=== PATIENT | male | born 1975 | race Two or more races ===

== ENCOUNTER 2023-09-23 06:28 | Observation (INO) ==
--- NOTE | 2023-07-30 16:11 | PAT Medication Instructions ---
Medication Instructions Date of Service July 30, 2023 Home Medications doxepin 50 mg capsule 100 mg PO QPM gabapentin 400 mg capsule 400 mg PO QPM eszopiclone 2 mg tablet 2 mg PO HS atorvastatin 20 mg tablet 20 mg PO HS Check with prescriber doxepin 50 mg capsule 100 mg PO QPM Take evening before surgery gabapentin 400 mg capsule 400 mg PO QPM eszopiclone 2 mg tablet 2 mg PO HS atorvastatin 20 mg tablet 20 mg PO HS Other Notes NOTHING TO EAT OR DRINK AFTER MIDNIGHT. If you have any questions please call us at [phone] or [phone] or [phone] or [phone]
--- NOTE | 2023-08-05 10:41 | Anesthesiology Consultation ---
Date of Service August 05, 2023 Assessment & Plan (1) Encounter for pre-operative examination: - awaiting surgeon ordered medical clearance. Chart Review Chart Review: Pending: Refer to Additional Notes / Consult section and Patient seen in Pre Admission Testing Teaching & Discussion Pre-Anesthesia Teaching/Discussion Notes: Instructed NPO after midnight before surgery, except medications with 15 cc of water. Medication instructions provided according to the PAT guidelines. History Surgery Operation Date: 08/19/23 07:45 Proposed Procedures p C5-C6 Anterior Cervical Discectomy and Fusion, Spinal Cord Monitoring - Kristopher Cortez DO Height/Weight Height: 5 ft 10 in Weight: 89.5 kg Allergies Allergy/AdvReac Type Severity Reaction Status Date / Time No Known Allergies Allergy Verified 07/30/23 15:43 Medications Home Medications Medication Instructions Recorded Confirmed Last Taken doxepin 50 mg capsule 100 mg PO QPM 04/04/20 07/30/23 Unknown gabapentin 400 mg capsule 400 mg PO QPM 04/05/20 07/30/23 Unknown eszopiclone 2 mg tablet 2 mg PO HS 11/17/20 07/30/23 Unknown atorvastatin 20 mg tablet 20 mg PO HS 12/13/22 07/30/23 Unknown choline [id number] 08/05/23 Unknown red beet root 250 mg-sour webber tab PO 08/05/23 Unknown extract 0.5 mg chewable tablet Additional Notes: Pt was advised and it was written on provided medication instructions to stop supplements 2 weeks prior to surgery. He verbalized understanding and agreement, denied questions, concerns or additional supplements. 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 Exercise / Class Metabolic Activity II 4-5 Yardwork/Stairs/Walk up hill (denies chest discomfort or shortness of breath with 1 FOS) Past Family History Family History Mother No problems noted. Father , age 54 of a stroke Stroke Past Surgical History Surgical History History of colonoscopy History of esophagogastroduodenoscopy (EGD) Past Anesthesia History No Hx of Anesthesia Complications and Other (mother with unknown anesthesia reaction) History of PONV No Hx of PONV and No Hx of Motion Sickness STOP BANG Total 1 Social History Smoking Status: Never smoker Do You Dip or Chew Tobacco: No Hx Alcohol Use: Yes alcohol intake frequency: holidays/special occasions only Hx Substance Use: No substance use type: does not use Review of Systems Patient denies chest pain, shortness of breath, dyspnea on exertion, snoring, witnessed apneas, reflux, fever, chills, cough, wheezing, or palpitations. Physical Exam Vital Signs Vitals BP 110/72 P 74 TEMP 98.4 SP02 97% on RA RESP 18 Physical Patient resting comfortably in chair in no acute distress, alert and oriented, responding appropriately throughout visit Full cervical extension range of motion without pain TMD 3.5 finger breadths Mallampati Score 2 Dentition: intact, denies chipped or loose teeth, caps/crowns, implants or bridges Lungs: normal respiratory effort. Good air movement, clear throughout to auscultation, no adventitious breath sounds Cardiac: regular rate and rhythm, no murmurs noted Carotid arteries: negative bruit bilat Lab Results Anesthesia Preop Results Results Anesthesia Widget: WBC 5.44 K/ul (4.8-10.8) 08/05/23 Hgb 14.3 g/dl (14.0-18.0) 08/05/23 Hct 42.7 % (42.0-52.0) 08/05/23 Plt 246 K/uL (130-400) 08/05/23 Na 137 mmol/L (136-145) 08/05/23 K 3.9 mmol/L (3.5-5.1) 08/05/23 Cl 104 mmol/L (98-107) 08/05/23 CO2 29 mmol/L (21-32) 08/05/23 BUN 12 mg/dl (6-23) 08/05/23 Creat 1.03 mg/dl (0.6-1.4) 08/05/23 Glucose Level 116 mg/dl (70-99(Fasting)) H 08/05/23 PT 10.9 Seconds (9.0-12.0) 08/05/23 PTT 26.9 Seconds (21.0-31.0) 08/05/23 INR 1.0 (0.9-1.1) 08/05/23 Urine Color Yellow 08/05/23 Urine Appearance Clear (Clear) 08/05/23 Urine pH 6.0 (4.5-7.5) 08/05/23 Urine Specific [place] 1.015 (1.000-1.030) 08/05/23 Urine Protein Negative (Negative) 08/05/23 Urine Glucose (UA) Negative (Negative) 08/05/23 Urine Ketones Negative (Negative) 08/05/23 Urine Blood Negative (Negative) 08/05/23 Urine Nitrite Negative (Negative) 08/05/23 Urine Bilirubin Negative (Negative) 08/05/23 Urine Urobilinogen Negative (Negative) 08/05/23 Urine Leukocyte Esterase Negative (Negative) 08/05/23 Blood Type B Positive 08/05/23 Antibody Screen NEGATIVE 08/05/23 Testing Electrocardiogram Date: 08/05/23 NSR, rate 71 bpm Minimal voltage criteria for LVH, may be normal variant Chest X-Ray Date: 08/05/23 No acute process
[~2023-09-23 06:28] MED LIST: ACETAMINOPHEN 500 MG TAB PO SCH; CeleBREX 200 MG CAP PO SCH; GABAPENTIN 900 MG DOSE PO SCH; LR 15ML/HR IV SCH; LR 60ML/HR IV SCH; ceFAZolin 2000MG 2,000 MG/15 ML SYR IV SCH
--- OUTSIDE RECORDS SUMMARY | 2023-09-23 06:34 | External Medical Summary | Summary of Care ---
Author Name Unknown Organization [facility] Address [address] [place] [address] Phone [phone] Care Team Providers Care Poker Manager Name Role Phone Ric Garcia MD Primary Care Provider + Reason for Visit * Reason Onset Date Comments Films 06/04/2023 Encounter Details Date Type Department Care Team Description 06/04/2023 Telephone Radiology Film File [address] [place], [place] [id number] Ric Garcia MD [address] [place] [address] Films Allergies No known active allergiesdocumented as of this encounter (statuses as of 06/04/2023) Medications Medication Sig Dispensed Refills Start Date End Date Status Eszopiclone 1 MG Oral Tablet Take 1 Tablet by mouth at bedtime. 0 Active doxepin (SINEQUAN) 75 MG Capsule Take 1 Capsule by mouth at bedtime. 0 Active Atorvastatin Calcium 20 MG Oral Tablet (Lipitor) Take by mouth 1 Tablet in the morning. 90 Tablet 3 07/24/2022 Active Gabapentin 400 MG Oral Capsule (Neurontin) TAKE 1 CAPSULE BY MOUTH AT BEDTIME FOR ANXIETY AND FOR INSOMNIA 0 10/31/2022 Active hydrOXYzine HCl 10 MG Oral Tablet (Atarax) 0 11/06/2022 Active documented as of this encounter (statuses as of 06/04/2023) Active Problems Problem Noted Date H. pylori infection 12/04/2022 Cervical spinal stenosis 07/31/2022 Anosmia 07/04/2022 Overview: 2ary since covid. 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 NO FUTURE labs/IV draws right arm when possible. 2019 polyp colon micky 5y. Routine general medical examination at a health care facility 07/13/2013 Overview: 12/20 +Hpylori 07/19 MRI C-spine stenosis. 07/19 start statin given family hx. 07/10 colonoscopy 8 &2mm polyp--1 tubular adenoma micky 5Y Overweight (BMI 25.0-29.9) 06/17/2013 History of splenomegaly 06/03/2013 Family history of [place] (myocardial infarct ion) 05/18/2013 Depression 05/18/2013 Overview: Sees [facility] Renal stone 05/18/2013 Persistent insomnia 06/06/2009 documented as of this encounter (statuses as of 06/04/2023) Resolved Problems Problem Noted Date Resolved Date Pain of right upper arm 03/19/2019 03/19/20 19 Neck mass 03/31/2013 03/05/2019 Overview: 04/09-referred surg--lipoma on path documented as of this encounter (statuses as of 06/04/2023) Immunizations Name Administration Dates Next Due COVID-19 mRNA, LNP-s, No Pre serve, 2-Dose Series (Synthesio) 03/29/2021,03/07/2021 Seasonal Influenza, Quadriva lent, No Preserve, 6 Mons & Above, IM 07/04/2022,09/13/2020 TDAP (age 10 and older)(Boostrix) 03/10/2019 TDAP (age 11 and older)(Adacel) 06/28/2008 documented as of this encounter Social History Tobacco Use Types Packs/Day Years Used Date Smoking Tobacco: Never Smokeless Tobacco: Never Alcohol Use Standard Drinks/Week Comments No 0 (1 standard drink = 0.6 oz pur e alcohol) Food Insecurity Answer Date Recorded Within the past 12 months, y ou worried that your food would run out before you got money to buy more. Never true 07/04/2022 Within the past 12 months, t he food you bought just didn't last and you didn't have money to get more. Never true 07/04/2022 Sex Assigned at Date Recorded Male 07/04/2022 9:03 AM E DT Job Start Date Occupation Industry Not on file Not on file Not on file documented as of this encounter Miscellaneous Notes * Telephone Encounter - JESSA Humphrey - 06/04/2023 9:29 AM EDT [facility] [place] requesting 07-04-22 xray c spine and 07-28-22 MRI c spine reports only be faxed to their office. [place] Authorization to Release form on file. Report(s) faxed to [phone]. Successful fax confirmation received. documented in this encounter Plan of Treatment Upcoming Encounters Date Type Specialty Care Team Description 06/10/2023 Nutrition Services Nutrition Services Ce Lara RDN [address] [place] [address] 06/24/2023 Office Visit Ophthalmology Cassius Taylor, [address] [place] [address] 10/08/2023 Office Visit Gastroenterology Yeyo Hines MD [address] [place] [address] 12/06/2023 Office Visit Family Medicine Ric Garcia MD [address] [place] [address] Scheduled Procedures Name Priority Associated Diagnoses Date/Ti me COLONOSCOPY FLEXIBLE PROXIMA L DIAGNOSTIC Recall History of colonic polyps Health Maintenance Due Date Last Done Comments Hepatitis B (1 of 3 - 3-dose series) 1975 Pneumococcal Vaccine: Pediatrics (0 to 5 Years) and At-Risk Patients (6 to 64 Years) (1 - PCV) 1981 Hepatitis C Screening 1993 COVID-19 Vaccine (3 - Pfizer series) 05/24/2021 03/29/2021, 03/07/2021 Influenza Vaccine (FLU shot) (#1) 2023 07/04/2022, 09/13/2020 Depression Screening, Annual for Pts 12 and Over 07/04/2023 07/04/2022 COLONOSCOPY-EVERY 5 YRS AGES 18-100 02/06/2024 02/05/2019, 02/05/2019, 07/13/2013, Additional history exists Diabetes Screening 07/04/2025 07/04/2022, 1 12/03/2019, 09/16/2020, Additional history exists Lipid Panel 10/18/2027 10/18/2022, 06/28, 03/04/2019 DTaP,Tdap,and Td Vaccines (3 - Td or Tdap) 03/10/2029 03/10/2019, 06/28/2008 GARDASIL-HPV IMMUNIZATION SERIES Aged Out No longer eligible based on patient's age to complete this topic MENINGOCOCCAL (MENACTRA/MENVEO) Aged Out No longer eligible based on patient's age to complete this topic documented as of this encounter Medical Devices Not on filedocumented as of this encounter Care Teams Poker Manager Relationship Specialty Start Date End Date Ric Garcia MD [address] [place] [address] PCP - General Family Medicine 02/05/19 documented as of this encounter
--- OUTSIDE RECORDS SUMMARY | 2023-09-23 06:34 | External Medical Summary | Summary of Care ---
Author Name Unknown Organization [facility] Address [address] [place] [address] Phone [phone] Care Team Providers Care Supervising Law Enforcement Analyst Name Role Phone Ric Cesar MD Primary Care Provider + Reason for Referral * Evaluate & Treat - Unlimited Visits (Within 30 days (routine)) - Pending Review Specialty Diagnoses / Procedures Referred By Contact Referred To Contact GI NUTRITION/IM / Gastroenterology Diagnoses Abdominal discomfort Yeyo Hines MD [address] [place] [address] Referral ID Status Reason Start Date Expiration Date Visits Requested Visits Authorized [id number] Pending Review Specialty Services Required 04/01/[phone] Question Answer Referral Priority Within 30 days (routine) For what condition is the patient being seen? Other Comments IBS, bloating - please travel counselor on FODMAPs Reason for Visit * Reason Comments Follow Up Abd pain, history of h pylori , gastritis , 3-6 month follow up Encounter Details Date Type Department Care Team Description 04/01/2023 Office Visit Gastroenterology, [facility] [address] [place] [address] Yeyo Hines MD [address] [place] [address] Abdominal discomfort* Allergies No known active allergiesdocumented as of this encounter (statuses as of 04/01/2023) Medications Medication Sig Dispensed Refills Start Date [...] MG Oral Tablet (Atarax) 0 11/06/2022 Active Amoxicillin 500 MG Oral Capsule (Amoxil)Indicati ons:Helicobacter pylori gastritis Take 2 Capsules by mouth in the morning and 2 Capsules before bedtime. For 14 days. 56 Capsule 0 12/20/2022 04/01/2023 Discontinued Clarithromycin 500 MG Oral Tablet (Biaxin)Indicati ons:Helicobacter pylori gastritis Take 1 Tablet by mouth in the morning and 1 Tablet before bedtime. For 14 days. 28 Tablet 0 12/20/2022 04/01/2023 Discontinued Omeprazole 20 MG Oral Capsule Delayed Release (PriLOSEC)Indica tions:Helicobact er pylori gastritis Take 1 Capsule by mouth in the morning and 1 Capsule before bedtime. For 10 days.. 28 Capsule 0 12/20/2022 04/01/2023 Discontinued documented as of this encounter (statuses as of 04/01/2023) Active Problems Problem Noted Date H. pylori [...] History of splenomegaly 06/03/2013 Family history of [place] (myocardial infarct ion) 05/18/2013 Depression 05/18/2013 Overview: Sees [place] Renal stone 05/18/2013 Persistent insomnia 06/06/2009 documented as of this encounter (statuses as of 04/01/2023) Resolved Problems Problem Noted Date Resolved Date Pain of right upper arm 03/19/2019 03/19/20 19 Neck mass 03/31/2013 03/05/2019 Overview: 04/09-referred surg--lipoma on path documented as of this encounter (statuses as of 04/01/2023) Immunizations Name Administration Dates Next Due COVID-19 mRNA, LNP-s, No Pre serve, 2-Dose Series (rumr) 03/29/2021,03/07/2021 Seasonal Influenza, Quadriva lent, No Preserve, 6 Mons & Above, IM 07/04/2022,09/13/2020 TDAP (age 10 and older)(Boostrix) 03/10/2019 TDAP (age 11 and older)(Adacel) 06/28/2008 documented as of this encounter Social History Tobacco Use Types Packs/Day Years Used Date Smoking Tobacco: Never Smokeless Tobacco: Never Tobacco Cessation:Counseling Given: Not Answered Alcohol Use Standard Drinks/Week Comments No 0 [...] on file documented as of this encounter Last Filed Vital Signs Vital Sign Reading Time Taken Comments Blood Pressure 111/72 04/01/2023 11:04 AM EDT Pulse 85 04/01/2023 11:04 AM EDT Temperature 36.6 C (97.9 F) 04/01/2023 11:04 AM E DT Respiratory Rate - - Oxygen Saturation 98% 04/01/2023 11:04 AM EDT Inhaled Oxygen Concentration - - Weight 90.3 kg (199 lb 1.6 oz) 04/01/2023 11:04 AM EDT Height - - Body Mass Index 28.57 11/15/2022 10:29 AM EST documented in this encounter Progress Notes * Yeyo Hines MD - 04/01/2023 11:38 AM EDT Consult requested by Ref: RIC CESAR[[id number]] [address] [facility] [place] [address] (office) [phone] (fax) HPI: 47 year old male seen for chronic abdominal pain. He reports chronic sense of diffuse abd distention, pressure, bloating. Symptoms are constant, unrelated to meals. Symptoms not improved in am, after overnight fast. His symptoms are improved by lying down; his symptoms including dypsnea are worse with sitting. No nausea, no vomiting. Appetite is good, although he has mild early satiety. No unintentional weight loss. He denies GERD symptoms. BM's without sense of incomplete evacuation. He feels as if bloating is causing distention. He has tried minimizing lactose x 2-3 months, without relief. Soda approx once a week. W/u has included - Bentyl trial in 2012 - Omperazolein 2019 - CT's in 2012 and 2018 - Cscopy in 2018 and 2012 - Amylase mildly increased in 2012 and 2021 - fecal elastase and stool for HP neg in 2021 - EGD WNL, bx pos Hp in 2022 - Biaxin triple therapy - GES WNL in 2022 - Breath test for SIBO with lactulose 12/20 - Hydrogen 16 to 34 at 100 mins, to 57 at 120 mins, methane 10 to 13 at 100 mins; no double peak, read as positive. At present, he is unchanged. He describes constant pressure in both sides, bloated. Appetite is good, weight unchanges, ROS: GEN: no weight loss, fever, fatigue HEENT: no changes in vision or hearing, no sinus problems, no sore throat, no hoarsenss RESP: no cough, wheezing, SOB or change in breathing CARDIOVASCULAR: no exertional chest pain, dyspnea, palpitations GI: see HPI , otherwise negative : no dysuria, hematuria, polyuria MUSCULOSKELETAL: no change in joint pains, no new arthritis PSYCHIATRIC: no significant anxiety or depression, unchanged sleep pattern HEME: no bleeding tendency, no transfusion history NEURO: no significant headache, no seizures , no tremors SKIN: no new rashes, no itching ALLERGIES: Review of patient's allergies indicates: No Known Allergies Past Medical History: Diagnosis Date Depression 05/18/2013 Seekelsey Cruz H. 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 NO FUTURE labs/IV draws right arm when possible. Renal stone 05/18/2013 Past Surgical History: Procedure Laterality Date COLONOSCOPY, DIAGNOSTIC (RECTUM) 07/13/2013 COLONOSCOPY FLEXIBLE PROXIMAL DIAGNOSTIC performed by Memo Monique MD at ENDOSCOPY [facility] COLONOSCOPY, DIAGNOSTIC (RECTUM) 02/05/2019 diverticulosis sigmoid colon/internal hemorrhoids/biopsies show adenomatous polyps/recall 5 years/COLONOSCOPY FLEXIBLE PROXIMAL DIAGNOSTIC performed by Memo Monique MD at ENDOSCOPY [facility] EGD, FLEXIBLE, DIAGNOSTIC 11/21/2022 biopsies show inflammation, H pylori/ESOPHAGOGASTRODUODENOSCOPY (EGD), FLEXIBLE, TRANSORAL, DIAGNOSTIC performed by Berto Watkins MD at ENDOSCOPY [facility] INJECT DX/THER SUBSTANCE INTERLAMINAR CERVICAL/THORACIC W IMAGE GUIDE 10/03/2022 INJECTION SPINE LUMBAR CERVICAL OR THORACIC performed by Omer Deras DO at OR [facility] MISCELLANEOUS ORDER ([facility] ONLY) Right 2006 right axilla right lymph node biopsy in [place]. RECONSTRUCT LIP W/LOCAL FLAP Family History Problem Relation Age of Onset Diabetes Mother Heart Disorder Father 54 of [place] +smoked. 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 Tobacco Use Smoking status: Never Smokeless tobacco: Never Vaping Use Vaping Use: Never used Substance and Sexual Activity Alcohol use: No Drug use: No Sexual activity: Yes Other Topics Concern Blood Transfusions No Social History Narrative No pets No mold Gas heat Central air conditioning Social Determinants of Health Food Insecurity: No Food Insecurity Worried About Running Out of Food in the Last Year: Never true Ran Out of Food in the Last Year: Never true BP 111/72 | Pulse 85 | Temp 36.6 C (97.9 F) | Wt 90.3 kg (199 lb 1.6 oz) | SpO2 98% | BMI 28.57kg/m | BSA 2.11 m GENERAL: obese in no acute distress SKIN: no rashes, ulcers, or spider angiomata HEENT: normocephalic, sclerae clear, pharynx normal NECK: supple, no masses or thyroid enlargement LUNGS: clear to auscultation and percussion HEART: regular rate & rhythm, no murmurs and no gallops ABDOMEN: Mild diastasis, non-tender without guarding or rebound, soft, normo- active bowel sounds, no masses, no hepatosplenomegaly, no rebound or guarding, no bruits EXTREMITIES: no palmar erythema, no edema, no skin discoloration, no clubbing, no cyanosis NEURO: no lateralizing findings, Sensory/Motor grossly normal Labs reviewed LFTs 07/19 WNL Amyase 133 CBC WNL TTG WNL Giardia nega B12 WNL I personally reviewed CT -- pancreas WNL, no evidence dastric/intestinal distention, mild diastasis, no hernia ASSESSMENT/PLAN: Bloating - DDX = functional, obesity related, aerophagia - Doubt related to Hp or SIBO - breath test did not show increase to 20 by 100 mins and no double peak, and pt did not have response to abx. - Pt wishes to try FODMAPS diet, will refer to dietitian. I offered trial of TCA at low dose, but he is concenerned abt sedation, and does not wish to try. Yeyo Hines MD documented in this encounter Nursing Notes * Vero Reyes LPN - 04/01/2023 11:06 AM EDT Patient identified by name and date of . Chief Complaint Patient presents with Follow Up Abd pain, history of h pylori , gastritis , 3-6 month follow up Pt finished treatment for h pylori approx 6 weeks ago ( per pt). Pt still has abd pain jose lower quadrants, constantly. documented in this encounter Plan of Treatment Upcoming Encounters Date Type Specialty Care Team Description 06/04/2023 Nutrition Services Gastroenterology Liz Flower RDN [address] [place] [id number] 10/08/2023 Office Visit Gastroenterology Yeyo Hines MD [address] [place] [address] 12/06/2023 Office Visit Family Medicine Ric Cesar MD [address] [place] [address] Scheduled Procedures Name Priority Associated Diagnoses Date/Ti me COLONOSCOPY FLEXIBLE PROXIMA L DIAGNOSTIC Recall History of colonic polyps Scheduled Referrals Name Type Priority Associated Diagnoses Orde r Schedule GI NUTRITION REFERRAL OP Referral Within 30 days (routine) Abdominal discomfort Ordered: 04/01/2023 Health Maintenance Due Date Last Done Comments Hepatitis B (1 of 3 - 3-dose series) 1975 Pneumococcal Vaccine: Pediatrics (0 to 5 Years) and At-Risk Patients (6 to 64 Years) (1 - PCV) 1981 Hepatitis C Screening 1993 COVID-19 Vaccine (3 - Booster for Pfizer series) 05/24/2021 03/29/2021, 03/07/2021 Depression Screening, Annual for Pts 12 and Over 07/04/2023 07/04/2022 COLONOSCOPY-EVERY 5 YRS AGES 18-100 02/06/2024 02/05/2019, 02/05/2019, 07/13/2013, Additional history exists Diabetes Screening 07/04/2025 07/04/2022, 1 12/03/2019, 09/16/2020, Additional history exists Lipid Panel 10/18/2027 10/18/2022, 06/28, 03/04/2019 DTaP,Tdap,and Td Vaccines (3 - Td or Tdap) 03/10/2029 03/10/2019, 06/28/2008 Influenza Vaccine (FLU shot) Completed 07/04/2022, 09/13/2020 GARDASIL-HPV IMMUNIZATION SERIES Aged Out No longer eligible based on patient's age to complete this topic MENINGOCOCCAL (MENACTRA/MENVEO) Aged Out No longer eligible based on patient's age to complete this topic documented as of this encounter Medical Devices Not on filedocumented as of this encounter Visit Diagnoses Diagnosis Abdominal discomfort- Primary Abdominal pain, unspecified site documented in this encounter Care Teams Supervising Law Enforcement Analyst Relationship Specialty Start Date End Date Ric Cesar MD [address] [place] [address] PCP - General Family Medicine 02/05/19 documented as of this encounter"
--- OUTSIDE RECORDS SUMMARY | 2023-09-23 06:34 | External Medical Summary | Summary of Care ---
Author Name Unknown Organization [facility] Address [address] [place] [address] Phone [phone] Care Team Providers Care Chicken Handler Name Role Phone Ric Garcia MD Primary Care Provider + Reason for Visit * Reason Comments Follow Up 2-3 week return. Pt states "It didn't make a difference when using warm compresses" Encounter Details Date Type Department Care Team Description 07/15/2023 Office Visit Ophthalmology, [facility] [address] [place] [address] Cassius Taylor T, DO [address] [place] [address] Chalazion of left lower eyelid* Allergies No known active allergiesdocumented as of this encounter (statuses as of 07/15/2023) Medications Medication Sig Dispensed Refills Start Date [...] MG Oral Tablet (Atarax) 0 11/06/2022 Active Hospital, Clinic, or Other Facility Administered Medication Ordered Dose Route Frequency Start Date End Date Status Triamcinolone Acetonide (Kenalog) 10 MG/ML inj 5 mgIndications:Chalazion of left lower eyelid 5 mg LS ONCE 07/15/2023 07/15/2023 Active documented as of this encounter (statuses as of 07/15/2023) Active Problems Problem Noted Date H. pylori [...] History of splenomegaly 06/03/2013 Family history of [place] (myocardial infarct ion) 05/18/2013 Depression 05/18/2013 Overview: Sees [facility] Renal stone 05/18/2013 Persistent insomnia 06/06/2009 documented as of this encounter (statuses as of 07/15/2023) Resolved Problems Problem Noted Date Resolved Date Pain of right upper arm 03/19/2019 03/19/20 19 Neck mass 03/31/2013 03/05/2019 Overview: 04/09-referred surg--lipoma on path documented as of this encounter (statuses as of 07/15/2023) Immunizations Name Administration Dates Next Due COVID-19 mRNA, LNP-s, No Pre serve, 2-Dose Series ([employer]) 03/29/2021,03/07/2021 Seasonal Influenza, PF, 6 mo ns & Above, IM , (Flulaval) 07/04/2022,09/13/2020 TDAP (age 10 and older)(Boostrix) 03/10/2019 [...] at Date Recorded Male 07/04/2022 9:03 AM EDT Job Start Date Occupation Industry Not on file Not on file Not on file documented as of this encounter Progress Notes * Cassius Taylor, - 07/15/2023 10:41 AM EDT Nitin Gomez is a 48 year old male who returns for left eye lower eyelid lesion. Pt reports present for some time with reported growth. Hygiene and compresses used with no effect Ophthalmology Past History: contact lenses Ophthalmology Family History: none Ophthalmology ROS: Positive for bump lll and no recent significant change in vision,no eye pain, redness, discharge,no diplopia Current Ophthalmic Medications: None EXAM: Base Eye Exam Visual Acuity (Snellen - Linear) Right Left Dist sc 20/40 20/25 Neuro/Psych Oriented x3: Yes Slit Lamp and Fundus Exam Slit Lamp Exam Right Left Lids/Lashes Normal central lower eyelid 1cm lesion suggested resolving chalazion with MGD plugging Conjunctiva/Sclera White and quiet White and quiet Cornea CL in use CL in use Anterior Chamber Deep and quiet Deep and quiet Iris Round and reactive Round and reactive Lens NS NS IMPRESSION: 1. Suspected Chalazion lll with MGD plugs PLAN: 1. R/B/A discussed including but not limited to pain, bleeding, scarring, infection, Loss of vision, loss of eye, need for further surgery, eye drops in the post operative period, the use of regionalor general anesthesia. 2. Name: Nitin Gomez Date: 07/15/2023 Outpatient Procedure Note: Pre op Diagnosis: chalazion left eye lower lid Post op Diagnosis: same Procedure: Injection of Chalazion left eye lower lid Surgeon: Cassius Taylor DO Anesthesia: alcaine Complications: none EBL: none Procedure: After obtaining informed consent from the patient and parent, the left eye was anesthetised with2 gtts of Alciane. alcohol used for antiseptic and 0.5mL of Kenalog 10 placed subcutaneouslyin area of chalazion. Erythromycin ointment was applied. Recommend F/U 4 weeks PRN. Blood loss none. No complications. DO Cassius Trejo DO documented in this encounter Nursing Notes * ALIRIO Louie - 07/15/2023 10:38 AM EDT Nitin Gomez is a 48 year old male who presents for 2-3 week Return. Last Visit: 06/24/2023 (in office), Visit date not found (telemedicine) He currently states "It didn't make a difference when using warm compresses" Are you diabetic? No Current Ophthalmic Medications: None documented in this encounter Plan of Treatment Upcoming Encounters Date Type Specialty Care Team Description 07/26/2023 Nutrition Services Nutrition Services Ce Lara, KONRAD [address] [place] [address] 08/07/2023 Office Visit Family Medicine Eros Moraes MD [address] [place] [address] 08/12/2023 Office Visit Ophthalmology Cassius Taylor DO 16 [place] [address] 10/08/2023 Office Visit Gastroenterology Yeyo Hines MD [address] [place] [address] 12/06/2023 Office Visit Family Medicine Ric Garcia MD [address] [place] [address] Scheduled Procedures Name Priority Associated Diagnoses Date/Ti me COLONOSCOPY FLEXIBLE PROXIMA L DIAGNOSTIC Recall History of colonic polyps Health Maintenance Due Date Last Done Comments Hepatitis B (1 of 3 - 3-dose series) 1975 Hepatitis C Screening 1993 COVID-19 Vaccine (3 - Pfizer series) 05/24/2021 03/29/2021, 03/07/2021 Influenza Vaccine (FLU shot) (#1) 2023 07/04/2022, 09/13/2020 Depression Screening 07/04/2023 07/04/2022 COLONOSCOPY-EVERY 5 YRS AGES 18-100 [...] on patient's age to complete this topic Pneumococcal Vaccine: Pediatrics (0 to 5 Years) and At-Risk Patients (6 to 64 Years) Aged Out No longer eligible based on patient's age to complete this topic documented as of this encounter Medical Devices Not on filedocumented as of this encounter Visit Diagnoses Diagnosis Chalazion of left lower eyelid- Primary Chalazion documented in this encounter Care Teams Chicken Handler Relationship Specialty Start Date End Date Ric Garcia MD [address] [place] [address] PCP - General Family Medicine 02/05/19 documented as of this encounter
--- OUTSIDE RECORDS SUMMARY | 2023-09-23 06:34 | External Medical Summary | Summary of Care ---
Author Name Unknown Organization [facility] Address [address] [place] [address] Phone [phone] Care Team Providers Care Quality Analyst/Technical Writer Name Role Phone Ric Garcia MD Primary Care Provider + Encounter Details Date Type Department Care Team Description 08/05/2023 Result Scan Unspecified Department <No scans attached> Allergies No known active allergiesdocumented as of this encounter (statuses as of 08/06/2023) Medications Medication Sig Dispensed Refills Start Date End Date Status Eszopiclone 1 MG Oral Tablet Take 1 Tablet by mouth at bedtime. 0 Active doxepin (SINEQUAN) 75 MG Capsule Take 1 Capsule by mouth at bedtime. 0 Active Gabapentin 400 MG Oral Capsule (Neurontin) TAKE 1 CAPSULE BY MOUTH AT BEDTIME FOR ANXIETY AND FOR INSOMNIA 0 10/31/2022 Active hydrOXYzine HCl 10 MG Oral Tablet (Atarax) 0 11/06/2022 Active Atorvastatin Calcium 20 MG Oral Tablet (Lipitor) TAKE 1 TABLET BY MOUTH IN THE MORNING 90 Tablet 1 07/17/2023 Active documented as of this encounter (statuses as of 08/06/2023) Active Problems Problem Noted Date Cervical spinal stenosis 07/31/2022 Anosmia 07/04/2022 Overview: [...] adenoma micky 5Y Overweight (BMI 25.0-29.9) 06/17/2013 Depression with anxiety 05/18/2013 Overview: Sees [facility] Persistent insomnia 06/06/2009 documented as of this encounter (statuses as of 08/06/2023) Resolved Problems Problem Noted Date Resolved Date H. pylori infection 12/04/2022 08/06/2023 Pain of right upper arm 03/19/2019 03/19/20 19 History of splenomegaly 06/03/2013 08/06/20 Family history of [place] (myocardial infarction) 08/06/2023 Renal stone 05/18/2013 08/06/2023 Neck mass 03/31/2013 03/05/2019 Overview: 04/09-referred surg--lipoma on path documented as of this encounter (statuses as of 08/06/2023) Immunizations Name Administration Dates Next Due COVID-19 mRNA, LNP-s, No Pre serve, 2-Dose Series ([employer]) 03/29/2021,03/07/2021 SEASONAL INFLUENZA, PF, 6 M & Above, IM , (FLULAVAL or FLUZONE) 07/04/2022,09/13/2020 TDAP (age 10 and older)(Boostrix) 03/10/2019 [...] on file documented as of this encounter Plan of Treatment Upcoming Encounters Date Type Specialty Care Team Description 08/07/2023 Office Visit Family Medicine [facility] Moraes [facility] [address] [facility] [place] [address] 08/12/2023 Office Visit Ophthalmology Cassius Taylor, DO [address] [place] [address] 09/25/2023 Nutrition Services Nutrition Services Ce Lara RDN 132 [facility] [place] [address] 10/08/2023 Office Visit Gastroenterology Yeyo Hines MD [address] [facility] [place] [address] 12/06/2023 Office Visit Family Medicine Ric Garcia MD 132 [facility] [place] [address] Scheduled Procedures Name Priority Associated Diagnoses Date/Ti me COLONOSCOPY FLEXIBLE PROXIMA L DIAGNOSTIC Recall History of colonic polyps Health Maintenance Due Date Last Done Comments Hepatitis B (1 of 3 - 3-dose series) 1975 Hepatitis C Screening 1993 COVID-19 Vaccine ( season) 2023 03/29/2021, 03/07/2021 Influenza Vaccine (FLU shot) (#1) 2023 07/04/2022, 09/13/2020 Depression Screening 07/04/2023 07/04/2022 COLONOSCOPY-EVERY 5 YRS AGES 18-100 02/06/2024 02/05/2019, 02/05/2019, 07/13/2013, Additional history exists Diabetes Screening 07/04/2025 08/05/2023, 0 07/04/2022, 10/02/2020, Additional history exists Lipid Panel 10/18/2027 10/18/2022, [...] Not on filedocumented as of this encounter Procedures Procedure Name Priority Date/Time Associated Diagnosis Comments OUTSIDE LAB RESULTS 08/05/2023 OUTSIDE LAB RESULTS 08/05/2023 EKG SCANNED RESULT 08/05/2023 documented in this encounter Results * OUTSIDE LAB RESULTS (08/05/2023) 08/05/2023 No Physician Data Unknown LABORATORY * OUTSIDE LAB RESULTS (08/05/2023) 08/05/2023 No Physician Data Unknown LABORATORY * EKG SCANNED RESULT (08/05/2023) 08/05/2023 No Physician Data Unknown EKG documented in this encounter Care Teams Quality Analyst/Technical Writer Relationship Specialty Start Date End Date Ric Garcia MD [address] [place] [address] PCP - General Family Medicine 02/05/19 documented as of this encounter
--- OUTSIDE RECORDS SUMMARY | 2023-09-23 06:34 | External Medical Summary | Summary of Care ---
Author Name Unknown Organization [facility] Address [address] [place] [address] Phone [phone] Care Team Providers Care Financial Planner Name Role Phone Ric Garcia MD Primary Care Provider + Reason for Visit * Reason Comments Follow Up 4 week f/u Encounter Details Date Type Department Care Team Description 08/12/2023 Office Visit Ophthalmology, [facility] [address] [place] [address] Cassius Taylor, DO [address] [place] [address] Chalazion of left lower eyelid* Allergies No known active allergiesdocumented as of this encounter (statuses as of 08/12/2023) Medications Medication Sig Dispensed Refills Start Date [...] as of this encounter (statuses as of 08/12/2023) Active Problems Problem Noted Date Cervical spinal stenosis 07/31/2022 Anosmia 07/04/2022 Overview: 2ary since covid. Other specified noninfective disorders of lymphatic vessels [...] 06/17/2013 Depression with anxiety 05/18/2013 Overview: Sees [facility] Persistent insomnia 06/06/2009 documented as of this encounter (statuses as of 08/12/2023) Resolved Problems Problem Noted Date Resolved Date H. pylori infection 12/04/2022 08/06/2023 History of 2019 novel coronavirus disease (COVID -19) 02/03/2021 08/07/2023 Pain of right upper arm 03/19/2019 03/19/20 19 History of splenomegaly 06/03/2013 08/06/20 23 Family history of [place] (myocardial infarction) 08/06/2023 Renal stone 05/18/2013 08/06/2023 Neck mass 03/31/2013 03/05/2019 Overview: 04/09-referred surg--lipoma on path documented as of this encounter (statuses as of 08/12/2023) Immunizations Name Administration Dates Next Due COVID-19 mRNA, LNP-s, No Pre serve, 2-Dose Series (Pfizer) 03/29/2021,03/07/2021 SEASONAL INFLUENZA, PF, 6 M & Above, IM , (FLULAVAL or FLUZONE) 08/07/2023,07/04/2022,09/13/2020 TDAP (age 10 and older)(Boostrix) 03/10/2019 TDAP [...] of this encounter Progress Notes * Cassius Taylor DO - 08/12/2023 11:13 AM EDT Nitin Gomez seen for 2 weeks post chalazion I/D LLL. Tolerated well improved but small lump persists. LLL: incisions intact small scar area C/S: Normal Cornea: Clear Assessment: 2 weeks S/P I/D LLL . Looks great. Plan: Reassurance Hygiene daily 4 week return consider kenalog Pt. advised to RTC sooner if there are any problems. Cassius Taylor DO documented in this encounter Nursing Notes * Winsome Blake RN - 08/12/2023 11:09 AM EDT Nitin Gomez is a 48 year old male who presents for 4 week f/u. Last Visit: 07/15/2023 (in office), Visit date not found (telemedicine) He currently states no issues or concerns with eyes. Are you diabetic? No Current Ophthalmic Medications: None [facility], IOP, current eyeglass Rx, and pupil check and dilation if needed can be found in ophth exam. documented in this encounter Plan of Treatment Upcoming Encounters Date Type Specialty Care Team Description 09/09/2023 Office Visit Ophthalmology Cassius Taylor DO [address] [place] [address] 09/25/2023 Nutrition Services Nutrition Services Ce Lara, RDN [address] [place] [address] 10/08/2023 Office Visit Gastroenterology Yeyo Hines MD [address] [place] [address] 12/06/2023 Office Visit Family Medicine Ric Garcia MD [address] [place] [address] Scheduled Procedures Name Priority Associated Diagnoses Date/Ti me COLONOSCOPY FLEXIBLE PROXIMA L DIAGNOSTIC Recall History of colonic polyps Health Maintenance Due Date Last Done Comments Hepatitis B (1 of 3 - 3-dose series) 1975 Hepatitis C Screening 1993 COVID-19 Vaccine (2022- season) 2023 03/29/2021, 03/07/2021 Depression Screening 07/04/2023 07/04/2022 COLONOSCOPY-EVERY 5 YRS AGES 18-100 02/06/2024 02/05/2019, 02/05/2019, 07/13/2013, Additional history exists Diabetes Screening 08/05/2026 08/05/2023, 0 07/04/2022, 10/02/2020, Additional history exists Lipid Panel 10/18/2027 10/18/2022, 06/28, 03/04/2019 DTaP,Tdap,and Td Vaccines (3 - Td or Tdap) 03/10/2029 03/10/2019, 06/28/2008 Influenza Vaccine (FLU shot) Completed 08/2023, 07/04/2022, 09/13/2020 GARDASIL-HPV IMMUNIZATION SERIES Aged Out [...] Chalazion documented in this encounter Care Teams Financial Planner Relationship Specialty Start Date End Date Ric Garcia MD [address] [place] [address] PCP - General Family Medicine 02/05/19 documented as of this encounter
--- OUTSIDE RECORDS SUMMARY | 2023-09-23 06:34 | External Medical Summary | Summary of Care ---
Author Name Unknown Organization [facility] Address [address] [place] [address] Phone [phone] Care Team Providers Care Water Tender Name Role Phone Ric Garcia MD Primary Care Provider + Reason for Referral * Precert (Within 10 days (routine)) - Pending Review Specialty Diagnoses / Procedures Referred By Zinaac t Referred To Contact Radiology Diagnoses Spinal stenosis of cervical region with radiculopathy Procedures MRI C SPINE WO CONTRAST Kristopher Cortez DO [address] [place] [address] Referral ID Status Reason Start Date Expiration Date V isits Requested Visits Authorized [id number] Pending Review 06/04/[phone] Encounter Details Date Type Department Care Team Description 06/04/2023 Orders Only Access [facility], [place] [address] [place] [address] Ext *DO NOT REMOVE THIS DEPARTMENT* [place] [id number] Requisition, External Radiology [address] [place] [address] Spinal stenosis of cervical region with radiculopathy* Allergies No known active allergiesdocumented as of [...] History of splenomegaly 06/03/2013 Family history of [place] (myocardial infarct ion) 05/18/2013 Depression 05/18/2013 Overview: Sees [facility] Renal stone 05/18/2013 Persistent insomnia 06/06/2009 documented as of this encounter (statuses as of 06/04/2023) Resolved Problems Problem Noted Date Resolved Date Pain of right upper arm 03/19/2019 03/19/20 19 Neck mass 03/31/2013 03/05/2019 Overview: 04/09-referred surg--lipoma on path documented as of this encounter (statuses as of 06/04/2023) Immunizations Name Administration Dates Next Due COVID-19 mRNA, LNP-s, No Pre serve, 2-Dose Series ([employer]) 03/29/2021,03/07/2021 Seasonal Influenza, Quadriva lent, No Preserve, [...] Encounters Date Type Specialty Care Team Description 06/07/2023 Imaging Radiology 06/10/2023 Nutrition Services Nutrition Services Ce Lara RDN [address] [place] [address] 06/24/2023 Office Visit Ophthalmology Cassius Taylor, [address] [place] [address] 10/08/2023 Office Visit Gastroenterology Yeyo Hines MD [address] [place] [address] 12/06/2023 Office Visit Family Medicine iRc Garcia MD [address] [place] [address] Scheduled Orders Name Type Priority Associated Diagnoses Orde r Schedule MRI C SPINE WO CONTRAST Medical Imaging Routine Spinal stenosis of cervical region with radiculopathy Expected: 06/04/2023, Expires: 07/05/2024 Scheduled Procedures Name Priority Associated Diagnoses Date/Ti [...] as of this encounter Visit Diagnoses Diagnosis Spinal stenosis of cervical region with radiculopathy- Primary documented in this encounter Care Teams Water Tender Relationship Specialty Start Date End Date Ric Garcia MD [address] [place] [address] PCP - General Family Medicine 02/05/19 documented as of this encounter
--- OUTSIDE RECORDS SUMMARY | 2023-09-23 06:34 | External Medical Summary | Summary of Care ---
Author Name Unknown Organization [facility] Address [address] [facility] [place] [address] Phone [phone] Care Team Providers Care Campaign Advisor Name Role Phone Ric Garcia MD Primary Care Provider + Reason for Visit * Reason Onset Date Comments pre-op exam [place] [facility] All pre[place] testing done at [facility] Medication Administration 08/07/2023 Flu an d/or Pneumo Inj Encounter Details Date Type Department Care Team Description 08/07/2023 Office Visit Family Practice [facility] [address] [facility] [place] [address] Eros Moraes MD [address] [facility] [place] [address] Pre-op evaluation*; Overweight (BMI 25.0-29.9); Cervical spinal stenosis; Need for prophylactic vaccination and inoculation against influenza; Depression with anxiety; Persistent insomnia Allergies No known active allergiesdocumented as of this encounter (statuses as of 08/07/2023) Medications Medication Sig Dispensed Refills Start Date [...] as of this encounter (statuses as of 08/07/2023) Active Problems Problem Noted Date Cervical spinal [...] as of this encounter (statuses as of 08/07/2023) Resolved Problems Problem Noted Date Resolved Date H. pylori infection 12/04/2022 08/06/2023 History of 2019 novel coronavirus disease (COVID -19) 02/03/2021 08/07/2023 Pain of right upper arm 03/19/2019 03/19/20 19 History of splenomegaly 06/03/2013 08/06/20 23 Family history of [place] (myocardial infarction) 08/06/2023 Renal stone 05/18/2013 08/06/2023 Neck mass 03/31/2013 03/05/2019 Overview: 04/09-referred surg--lipoma on path documented as of this encounter (statuses as of 08/07/2023) Immunizations Name Administration Dates Next Due COVID-19 [...] Sign Reading Time Taken Comments Blood Pressure 100/72 08/07/2023 12:11 PM EDT Pulse 76 08/07/2023 12:11 PM EDT Temperature - - Respiratory Rate - - Oxygen Saturation - - Inhaled Oxygen Concentration - - Weight 87.7 kg (193 lb 4 oz) 08/07/2023 12:11 PM EDT Height - - Body Mass Index 27.73 06/10/2023 10:34 AM EDT documented in this encounter Progress Notes * Eros Moraes MD - 08/07/2023 12:30 PM EDT SUBJECTIVE: Nitin Gomez is a 48 year old male. Chief Complaint Patient presents with pre-op exam [place] [facility] All preop testing done at [facility] Medication Administration Flu and/or Pneumo Inj HPI: Scheduled for ACDF with Dr. Cortez scheduled for 08/19. Pre op studies done at [facility] reviewed. He feels well from a cardiopulmonary perspective. He notes that his pain is improving and he thinks he may want to delay the surgery. He will talk to Dr. Cortez about this. 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 doxepin (SINEQUAN) 75 MG Capsule Take 1 Capsule by mouth at bedtime. Gabapentin 400 MG Oral Capsule (Neurontin) TAKE 1 CAPSULE BY MOUTH AT BEDTIME FOR ANXIETY AND FOR INSOMNIA hydrOXYzine HCl 10 MG Oral Tablet (Atarax) Atorvastatin Calcium 20 MG Oral Tablet (Lipitor) TAKE 1 TABLET BY MOUTH IN THE MORNING 90 Tablet 1 No current facility-administered medications for this visit. Allergy: Review of patient's allergies indicates: No Known Allergies OBJECTIVE: BP 100/72 | Pulse 76 | Wt 87.7 kg (193 lb 4 oz) | BMI 27.73 kg/m | BSA 2.08 m General: alert, healthy, and no distress Head: Normocephalic, No masses, lesions, tenderness or abnormalities Lungs: chest symmetric with normal AP diameter, no chest deformities noted, no chest wall tenderness, lungs clear to auscultation Heart: regular rate & rhythm, no murmur, and no gallops Extremities: less than 2 second capillary refill, no joint deformities, effusion, or inflammation Skin: skin color, texture, turgor are normal, no rashes or significant lesions ASSESSMENT AND PLAN: (Z01.818) Pre-op evaluation (primary encounter diagnosis) Plan: cleared for surgery should he decide he still wants it done --- he will talk with Dr. Cortez (E66.3) Overweight (BMI 25.0-29.9) Plan: diet/exercise (M48.02) Cervical spinal stenosis Plan: see above (Z23) Need for prophylactic vaccination and inoculation against influenza Plan: INFLUENZA VACC, QUAD, PF, 6 MONTHS & UP, 0.5 ML, IM (F41.8) Depression with anxiety Plan: stable (G47.00) Persistent insomnia Plan: stable Follow up as needed. No other complaints were offered at this time. Eros Moraes MD * Asha Lara LPN - 08/07/2023 12:13 PM EDT PRE - ADMINISTRATION DOCUMENTATION Are you experiencing any cold symptoms or fever? No Have you had Guillain-[place] Syndrome (an illness that causes paralysis) within the last 6 weeks? No Have you had the flu shot in the past? YES Have you ever had a reaction to the flu shot? No Asha Lara LPN, 08/07/2023 12:13 PM Immunization Administration Documentation Time Out Procedure Performed: Yes Patient Identified (Ask Name/Date of ): Yes Does the patient have a fever greater than 101 degrees today? No Patient allergic to latex? No VFC Stock: No Injection(s) verified: Yes, Injection Name: Flulaval Verified Side and Site: Yes Verified Shot(s) with Parent(s)/Patient: Yes documented in this encounter Plan of Treatment Upcoming Encounters Date Type Specialty Care Team Description 08/12/2023 Office Visit Ophthalmology Cassius Taylor, DO [address] [place] [address] 09/25/2023 Nutrition Services Nutrition Services Ce Lara RDN [address] [place] [address] 10/08/2023 Office Visit Gastroenterology Yeyo Hines MD [address] [place] [address] 12/06/2023 Office Visit Family Medicine Ric Garcia MD [address] [place] [address] Scheduled Procedures Name Priority Associated Diagnoses Date/Ti me COLONOSCOPY FLEXIBLE PROXIMA L DIAGNOSTIC Recall History of colonic polyps Health Maintenance Due Date Last Done Comments Hepatitis B (1 of 3 - 3-dose series) 1975 Hepatitis C Screening 1993 COVID-19 Vaccine (3 - 2023-24 season) 2023 03/29/2021, 03/07/2021 Depression Screening 07/04/2023 [...] as of this encounter Visit Diagnoses Diagnosis Pre-op evaluation- Primary Preoperative examination, unspecified Overweight (BMI 25.0-29.9) Overweight Cervical spinal stenosis Spinal stenosis in cervical region Need for prophylactic vaccination and inoculation against influenza Depression with anxiety Dysthymic disorder Persistent insomnia Persistent disorder of initiating or maintaining sleep documented in this encounter Care Teams Campaign Advisor Relationship Specialty Start Date End Date Ric Garcia MD [address] [place] [address] PCP - General Family Medicine 02/05/19 documented as of this encounter"
--- OUTSIDE RECORDS SUMMARY | 2023-09-23 06:34 | External Medical Summary | Summary of Care ---
Author Name Unknown Organization [facility] Address [address] [place] [facility] [place] [address] Phone [phone] Care Team Providers Care Training Instructor Name Role Phone Ric Cesar MD Primary Care Provider + Reason for Visit * Reason Comments eRx-Medication Refill Encounter Details Date Type Department Care Team Description 07/17/2023 Refill Family Practice [facility] [address] [facility] [place] [address] Ric Cesar MD [address] [place] [address] Allergies No known active allergiesdocumented as of this encounter (statuses as of 07/17/2023) Medications Medication Sig Dispensed Refills Start Date [...] THE MORNING 90 Tablet 1 07/17/2023 Active Atorvastatin Calcium 20 MG Oral Tablet (Lipitor) Take by mouth 1 Tablet in the morning. 90 Tablet 3 07/24/2022 07/17/2023 Discontinued documented as of this encounter (statuses as of 07/17/2023) Active Problems Problem Noted Date H. pylori [...] History of splenomegaly 06/03/2013 Family history of [place] (myocardial infarct ion) 05/18/2013 Depression 05/18/2013 Overview: Sees Anthony Renal stone 05/18/2013 Persistent insomnia 06/06/2009 documented as of this encounter (statuses as of 07/17/2023) Resolved Problems Problem Noted Date Resolved Date Pain of right upper arm 03/19/2019 03/19/20 19 Neck mass 03/31/2013 03/05/2019 Overview: 04/09-referred surg--lipoma on path documented as of this encounter (statuses as of 07/17/2023) Immunizations Name Administration Dates Next Due COVID-19 mRNA, LNP-s, No Pre serve, 2-Dose Series (Pfizer) 03/29/2021,03/07/2021 Seasonal Influenza, PF, 6 mo ns [...] encounter Miscellaneous Notes * Telephone Encounter - Sekou Sharma [facility] - 07/17/2023 2:04 PM EDT Signed Prescriptions: Disp Refills Atorvastatin Calcium 20 MG Oral Tablet (Li*90 Tab*1 Sig: TAKE 1 TABLET BY MOUTH IN THE MORNINGAuthorizing Provider: RIC CESAR User: SEKOU SHARMA documented in this encounter Plan of Treatment Upcoming Encounters Date Type Specialty Care Team Description 07/26/2023 Nutrition Services Nutrition Services Ce Lara RDN [address] [place] [address] 08/07/2023 Office Visit Family Medicine Eros Moraes MD [address] [place] [address] 08/12/2023 Office Visit Ophthalmology Cassius Taylor, DO [address] [place] [address] 10/08/2023 Office Visit Gastroenterology Yeyo Hines MD [address] [place] [address] 12/06/2023 Office Visit Family Medicine Ric Cesar MD [address] [place] [address] Scheduled Procedures Name Priority Associated Diagnoses Date/Ti [...] filedocumented as of this encounter Care Teams Training Instructor Relationship Specialty Start Date End Date Ric Cesar MD [address] [place] [address] PCP - General Family Medicine 02/05/19 documented as of this encounter
--- OUTSIDE RECORDS SUMMARY | 2023-09-23 06:34 | External Medical Summary | Summary of Care ---
Author Name Unknown Organization [facility] Address [address] [facility] [address] Phone [phone] Care Team Providers Care Antenna Rigger Name Role Phone Ric Garcia MD Primary Care Provider + Reason for Visit * Reason Comments Medical Nutrition Therapy * Evaluate & Treat - Unlimited Visits (Within 30 days (routine)) - Pending Review Specialty Diagnoses / Procedures Referred By Contact Referred To Contact GI NUTRITION/IM / Gastroenterology Diagnoses Abdominal discomfort Yeyo Hines MD [address] [facility] [place] [address] Referral ID Status Reason Start Date Expiration Date Visits Requested Visits Authorized [id number] Pending Review Specialty Services Required 04/01/[phone] Encounter Details Date Type Department Care Team Description 06/10/2023 Nutrition Services NutritionKimberly [address] [place] [address] Ce Lara RDN [address] [facility] [place] [address] Irritable bowel syndrome, unspecified type*; Bloating; GI symptoms; Overweight (BMI 25.0-29.9); Abdominal discomfort Allergies No known active allergiesdocumented as of this encounter (statuses as of 06/10/2023) Medications Medication Sig Dispensed Refills Start Date [...] as of this encounter (statuses as of 06/10/2023) Active Problems Problem Noted Date H. pylori [...] History of splenomegaly 06/03/2013 Family history of [place] (myocardial infarct ion) 05/18/2013 Depression 05/18/2013 Overview: Sees [place] Renal stone 05/18/2013 Persistent insomnia 06/06/2009 documented as of this encounter (statuses as of 06/10/2023) Resolved Problems Problem Noted Date Resolved Date Pain of right upper arm 03/19/2019 03/19/20 19 Neck mass 03/31/2013 03/05/2019 Overview: 04/09-referred surg--lipoma on path documented as of this encounter (statuses as of 06/10/2023) Immunizations Name Administration Dates Next Due COVID-19 mRNA, LNP-s, No Pre serve, 2-Dose Series ([employer]) 03/29/2021,03/07/2021 Seasonal Influenza, Quadriva lent, No Preserve, [...] Sign Reading Time Taken Comments Blood Pressure - - Pulse - - Temperature - - Respiratory Rate - - Oxygen Saturation - - Inhaled Oxygen Concentration - - Weight 89.9 kg (198 lb 4.8 oz) 06/10/2023 10:34 AM EDT Height 177.8 cm (5' 10") 06/10/2023 10:34 AM EDT Body Mass Index 28.45 06/10/2023 10:34 AM EDT documented in this encounter Patient Instructions * Patient Instructions* Ce Lara RDN - 06/10/2023 11:18 AM EDT Patient will avoid lactose and gluten for next 2 weeks. Monitor for improvement in GI symptoms. Patient will keep food log daily for 4 weeks. Patient will avoid high-FODMAP foods for 2 weeks. Then introduce 1 high-FODMAP food at a time and monitor for symptoms. Be sure to log these in your food log. Patient will try 5-6 small, frequent meals. documented in this encounter Progress Notes * Ce Lara RDN - 06/10/2023 10:25 AM EDT NUTRITION CONSULT - OUTPATIENT [facility] Name: Nitin Gomez Location: [facility] Date: 06/10/2023 Time: 10:25 AM Patient was identified by name and date. Patient was seen [id number] in the clinic. Reason for Referral: IBS NUTRITION ASSESSMENT: Client History Patient is a 48 year old male being seen for above issue. He works in [employer]. He was referred by Dr Hines from Gastroenterology. Support System: Spouse Barriers To Learning: None Special Education Needs: None Food/Nutrition-Related History Describes typical diet history/24 hr recall Breakfast: Cheerios with lactose-free milk or 2 eggs with rachel bread-plain, instant coffee with creamer with 2 spoonfuls of sugar Snacks: None Lunch: White rice, beef stew with vegetables-sweet peas, green beans, garlic & onion and tomatosauce Snacks: None Dinner: Same as lunch or pasta with tomato sauce and sometimes with ground beef or cheese & salami sandwich Snacks: Sometimes potato chips Drinks: Black tea or instant coffee with creamer and 2 sugars-32 ounces, water- 60 ounces total Restaurant meals: Once or twice a week Alcohol: Beer once or twice a week Tobacco Use: No Diet Recall/Food Logs Indicate: AREAS FOR IMPROVEMENT: Excess intake of sweetened beverages Inadequate fiber intake Inadequate fruit and vegetable intake Significant caffeine intake Significant intake of high-FODMAP foods POSITIVE: Portion control Low fat and/or low sugar selections Good meal distribution Food and Nutrient Intake and other pertinent information: Patient reports he has had GI issues for past 9 years, but notes symptoms have been worsening recently. He complains of abdominal bloating and pressure, early satiety, lack of hunger at mealtime and pain in his lower back; states this is a "continuous feeling". Of note: He notes no significant change in oral intake. States he had a colonosc opy, endoscopy, and a stool culture. Notes breath test revealed SIBO. He initially took an antibiotic for H pylori but notes still having symptoms despite finishing his course of medicine. States bloating, pain, and pressure is pressing up again his diaphragm contributing to SOB. States he has another upcoming stool test. He denies diarrhea or constipation; states having daily bm's. He has noticed no significant relieve or worsening of symptoms after having a bm or after eating certain food. His does meal preparation; pt and/or share shopping duties. He does not currently review nutrition labels or ingredients lists. Food allergies and/or food intolerances: Decreasing lactose and wheat, but not totaling avoiding them per pt report. Pertinent Medications (Current): Current Outpatient Medications Medication Sig Dispense Refill Eszopiclone 1 MG Oral Tablet Take 1 Tablet by mouth at bedtime. doxepin (SINEQUAN) 75 MG Capsule Take 1 Capsule by mouth at bedtime. Atorvastatin Calcium 20 MG Oral Tablet (Lipitor) Take by mouth 1 Tablet in the morning. 90 Tablet 3 Gabapentin 400 MG Oral Capsule (Neurontin) TAKE 1 CAPSULE BY MOUTH AT BEDTIME FOR ANXIETY AND FOR INSOMNIA hydrOXYzine HCl 10 MG Oral Tablet (Atarax) No current facility-administered medications for this visit. 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 Anthropometric Measurements Ht 1.778 m (5' 10") | Wt 89.9 kg (198 lb 4.8 oz) | BMI 28.45 kg/m | BSA 2.11 m Wt Readings from Last 5 Encounters: 06/10/23 89.9 kg (198 lb 4.8 oz) 04/01/23 90.3 kg (199 lb 1.6 oz) 12/20/22 90.5 kg (199 lb 8 oz) 12/05/22 91.4 kg (201 lb 8 oz) 11/15/22 86.2 kg (190 lb) Weight Change: increased by 8 pounds in the past 8 months per Epic review BMI: BMI Readings from Last 1 Encounters: 06/10/23 28.45 kg/m Nutrition-Focused Physical Findings Overall appearance: overweight Biochemical Data, Medical Tests, and Procedures No labs warranting nutritional intervention. Of note: Test for celiac disease in August of 2020 was negative. NUTRITION DIAGNOSIS Altered GI function related to GI distress and symptoms with diagnoses of SIBO and IBS as evidencedby medical diagnoses and pt encounter NUTRITION INTERVENTION: NUTRITION EDUCATION Initial/brief nutrition education NUTRITION COUNSELING Strategies Gastrointestinal Disease/Allergy Education: Low FODMAP (fermentable oligosaccharides, disaccharides, monosaccharides and polyols) Diet Other Education Material: Academy of [employer] and Dietetics Nutrition Care Manual Handout -Low FODMAP Nutrition Therapy Nutrition Prescription: Diet: Low FODMAP (fermentable oligosaccharides, disaccharides, monosaccharides, and polyols) Small, frequent meals Daily Calorie Needs: 3941-3089 Kcals Daily Protein Needs: 75 Grams protein Goals: Patient will avoid lactose and gluten for next 2 weeks. Monitor for improvement in GI symptoms. Patient will keep food log daily for 4 weeks. Patient will avoid high-FODMAP foods for 2 weeks. Then introduce 1 high-FODMAP food at a time and monitor for symptoms. Be sure to log these in your food log. Patient will try 5-6 small, frequent meals. Dietitian Action: Encouraged patient to avoid gassy vegetables, gluten, and lactose for a few weeksand monitor for improvement in GI symptoms. Encouraged him to keep a food log and monitor for GI symptoms. Reviewed low FODMAP foods allowed and those to avoid. Encouraged him to try small, frequent meals throughout the day. Encouraged him to discuss his dietary restrictions with his who does most of the meal preparation. Discussed reviewing ingredients lists and avoiding high FODMAP foods when shopping. Discussed after 2 weeks, introducing one high FODMAP foods at a time, but continuing to avoid lactose and gluten for now. Patient agreeable to above plan of care. Recommendations to Ordering Provider: Continue current plan of nutrition care. NUTRITION MONITORING AND EVALUATION: The following will be monitored and evaluated at the next visit: Monitor weight. Review food logs. Monitor goals and progress. Plan:Patient scheduled to return in 6 weeks; KONRAD encouraged participant to reach out with any questions through the My Chart portal. 60 minutes Medical Nutrition Therapy Time In: 1023 (06/10/23 1249) Time Out: 1120 (06/10/23 1249) Ce [facility] documented in this encounter Plan of Treatment Upcoming Encounters Date Type Specialty Care Team Description 06/24/2023 Office Visit Ophthalmology Cassius Taylor, DO [address] [facility] [address] 07/26/2023 Nutrition Services Nutrition Services Ce Lara, H[place] [address] [place] [address] 08/07/2023 Office Visit Family Medicine Eros Moraes MD [address] [place] [address] 10/08/2023 Office Visit Gastroenterology Yeyo Hines MD [address] [place] [address] 12/06/2023 Office Visit Family Medicine Ric Garcia MD [address] [place] [address] Scheduled Procedures Name Priority Associated Diagnoses Date/Ti [...] as of this encounter Visit Diagnoses Diagnosis Irritable bowel syndrome, unspecified type- Primary Bloating Flatulence, eructation, and gas pain GI symptoms Other symptoms involving digestive system Overweight (BMI 25.0-29.9) Overweight Abdominal discomfort Abdominal pain, unspecified site documented in this encounter Care Teams Antenna Rigger Relationship Specialty Start Date End Date Ric Gacria MD [address] [place] [address] PCP - General Family Medicine 02/05/19 documented as of this encounter
--- OUTSIDE RECORDS SUMMARY | 2023-09-23 06:34 | External Medical Summary | Summary of Care ---
Author Name Unknown Organization [facility] Address [address] [place] [address] Phone [phone] Care Team Providers Care Health And Fitness Professor Name Role Phone Ric Garcia MD Primary Care Provider + Reason for Visit * Reason Comments NEW PATIENT Papilloma LLL referr ed by Dr. Muro Encounter Details Date Type Department Care Team Description 06/24/2023 Office Visit Ophthalmology, [facility] 132 [facility] [place] [address] Cassius Taylor, DO [address] [place] [address] Chalazion of left lower eyelid* Allergies No known active allergiesdocumented as of this encounter (statuses as of 06/24/2023) Medications Medication Sig Dispensed Refills Start Date [...] as of this encounter (statuses as of 06/24/2023) Active Problems Problem Noted Date H. pylori [...] History of splenomegaly 06/03/2013 Family history of [place] (myocardial infarct ion) 05/18/2013 Depression 05/18/2013 Overview: Sees [facility] Renal stone 05/18/2013 Persistent insomnia 06/06/2009 documented as of this encounter (statuses as of 06/24/2023) Resolved Problems Problem Noted Date Resolved Date Pain of right upper arm 03/19/2019 03/19/20 19 Neck mass 03/31/2013 03/05/2019 Overview: 04/09-referred surg--lipoma on path documented as of this encounter (statuses as of 06/24/2023) Immunizations Name Administration Dates Next Due COVID-19 mRNA, LNP-s, No Pre serve, 2-Dose Series (Pfizer) 03/29/2021,03/07/2021 Seasonal Influenza, PF, 6 mo ns & Above, IM , (Flulaval) 07/04/2022,09/13/2020 TDAP (age 10 and older)(Boostrix) 03/10/2019 TDAP (age 11 and older)(Adacel) 06/28/2008 documented as of this encounter Social History Tobacco Use Types Packs/Day Years Used Date Smoking Tobacco: Never Smokeless Tobacco: Never Tobacco Cessation:Counseling Given: No Alcohol Use Standard Drinks/Week Comments No 0 [...] Progress Notes * Cassius Taylor DO - 06/24/2023 8:53 AM EDT Nitin Gomez is a 48 year old male who presents for left eye lower eyelid lesion. Pt reports present for some time with reported growth Ophthalmology Past History: contact lenses Ophthalmology Family History: none Ophthalmology ROS: Positive for bump lll and no recent significant change in vision,no eye pain, redness, discharge,no diplopia Current Ophthalmic Medications: None EXAM: Base Eye Exam Visual Acuity (Snellen - Linear) Right Left Dist sc 20/20 -1 20/20 Pupils Pupils Light Shape React APD Right PERRL 3 Round Brisk None Left PERRL 3 Round Brisk None Visual Vanessa (Counting fingers) Right Left Full Full Extraocular Movement Right Left Full Full Neuro/Psych Oriented x3: Yes Slit Lamp and [...] Chalazion lll with MGD plugs PLAN: 1. Digitally expressed MG 2. Compresses and hygiene daily 3. 2 week return 4. Consider tobradex with CL holiday Cassius Taylor DO documented in this encounter Nursing Notes * Rebeca Castro RN - 06/24/2023 8:37 AM EDT Nitin Gomez is a 48 year old male who presents for Papilloma LLL. Last Visit: Visit date not found (in office), Visit date not found (telemedicine) He currently states no change in vision. Are you diabetic?NO Do you check your sugar daily? NO. Last Hemoglobin A1C: Lab Results Component Value Date/Time HGBA1C 5.8 (H) 09/16/2020 03:28 PM HGBA1C 5.7 (H) 03/04/2019 02:47 PM Current Ophthalmic Medications: None Referred by: Jina COMPREHENSIVE OCULAR HISTORY Any history in yourself or blood related family of: -Diabetes- No -Diabetic Retinopathy- No -High Blood Pressure- No -Heart Disease- Family -Thyroid Disease- Family -Blindness- No -Macular Degeneration- No -Retinal Detachment- No -Glaucoma/Pressure in the Eye- No -Chronic Problem Headaches or Migraines- No -Have you ever had any major surgery or serious injury of or around the eyes- no -Are your eyes chronically- N/A -Do you smoke- No Vision, IOP, current eyeglass Rx, pupil check and dilation if done can be found in ophth exam. documented in this encounter Plan of Treatment Upcoming Encounters Date Type Specialty Care Team Description 07/15/2023 Office Visit Ophthalmology Cassius Taylor, [address] [place] [address] 07/26/2023 Nutrition Services Nutrition Services Ce Lara, KONRAD [address] [place] [address] 08/07/2023 Office Visit Family Medicine Eros Moraes MD [address] [place] [address] 10/08/2023 Office Visit Gastroenterology Yeyo Hines MD [address] [place] [address] 12/06/2023 Office Visit Family Medicine Ric Garcia MD [address] [place] [address] Scheduled Procedures Name Priority Associated Diagnoses Date/Ti [...] Chalazion documented in this encounter Care Teams Health And Fitness Professor Relationship Specialty Start Date End Date Ric Garcia MD [address] [place] [address] PCP - General Family Medicine 02/05/19 documented as of this encounter
--- OUTSIDE RECORDS SUMMARY | 2023-09-23 06:34 | External Medical Summary | Summary of Care ---
Author Name Unknown Organization [facility] [address] [facility] [address] Phone [phone] Care Team Providers Care Hematologist Oncologist Name Role Phone Ric Garcia MD Primary Care Provider + Encounter Details Date Type Department Care Team Description 08/06/2023 Orders Only Family Practice [facility] 132 [facility] [place] [address] Ric Garcia MD 132 [facility] [address] Allergies No known active allergiesdocumented as of [...] FUTURE labs/IV draws right arm when possible. 2018 polyp colon micky 5y. Routine general medical examination at a health care facility 07/13/2013 Overview: 12/20 +Hpylori 07/19 MRI C-spine stenosis. 07/19 start statin given family hx. 07/10 colonoscopy 8 &2mm polyp--1 tubular adenoma micky 5Y Overweight (BMI 25.0-29.9) 06/17/2013 Depression with anxiety 05/18/2013 Overview: Sees [place] Persistent insomnia 06/06/2009 documented as of this encounter (statuses as of 08/06/2023) Resolved Problems Problem Noted Date Resolved Date H. pylori infection 12/04/2022 08/06/2023 Pain of right upper arm 03/19/2019 03/19/20 19 History of splenomegaly 06/03/2013 08/06/20 23 Family history of [place] (myocardial infarction) 08/06/2023 Renal stone 05/18/2013 08/06/2023 [...] Visit [facility] [place] [address] 08/12/2023 Office Visit Ophthalmology Cassius Taylor, 16 [place] [address] 09/25/2023 Nutrition Services Nutrition Services Ce Lara RDN 132 [facility] [place] [address] 10/08/2023 Office Visit Gastroenterology Yeyo Hines MD [address] [place] [address] 12/06/2023 Office Visit Family Medicine Ric Garcia MD [address] [place] [address] Scheduled Procedures Name Priority Associated Diagnoses Date/Ti me COLONOSCOPY FLEXIBLE PROXIMA L DIAGNOSTIC Recall History of colonic polyps Health Maintenance Due Date Last Done Comments Hepatitis B (1 of 3 - 3-dose series) 1975 Hepatitis C Screening 1993 COVID-19 Vaccine ( - season) 2023 03/29/2021, 03/07/2021 Influenza Vaccine (FLU [...] Procedure Name Priority Date/Time Associated Diagnosis Comments XR CHEST 2 VIEWS Routine 08/05/2023 CHEMISTRY-OUTSIDE Routine 08/05/2023 documented in this encounter Results * (ABNORMAL) CHEMISTRY-OUTSIDE (08/05/2023) Not all results display below - see scan for full detail OUTSIDE LAB (SEE SCANNED REPORT) Comment:[facility] -CBCD,BMP CREATININE-OUTSID E LAB 1.03 0.6 - 1.4 MG/DL OUTSIDE LAB (SEE SCANNED REPORT) EGFR-OUTSIDE LAB 85.5 ML/MIN OUT SIDE LAB (SEE SCANNED REPORT) POTASSIUM-OUTSIDE LAB 3.9 3.5 - 5.1 MMOL OUTSIDE LAB (SEE SCANNED REPORT) GLUCOSE-OUTSIDE LAB 116(A) 70 - 99 MG/DL OUTSIDE LAB (SEE SCANNED REPORT) HOURS FASTING OUTSID E LAB (SEE SCANNED REPORT) TRIGLYCERIDES-OUT SIDE LAB OUTSIDE LAB (SEE SCANNED REPORT) CHOLESTEROL-OUTSI DE LAB OUTSIDE LAB (SEE SCANNED REPORT) HDL-OUTSIDE LAB OUTS [place] LAB (SEE SCANNED REPORT) CHOL/HDL RATIO-OUTSIDE LAB OUTSIDE LA B (SEE SCANNED REPORT) LDL (CALCULATED)-OUTS [place] LAB OUTSIDE LAB (SEE SCANNED REPORT) LDL (DIRECT MEASURE)-OUTSIDE LAB OUTSIDE LAB (SEE SCANNED REPORT) HEMOGLOBIN, C7D-IDGNYEW LAB OUTSIDE LAB (SEE SCANNED REPORT) PHOSPHORUS-OUTSID E LAB OUTSIDE LAB (SEE SCANNED REPORT) PTH-OUTSIDE LAB OUTS [place] LAB (SEE SCANNED REPORT) MICROALBUMIN RATIO-OUTSIDE LAB OUTSIDE LA B (SEE SCANNED REPORT) PROTEIN, UA-OUTSIDE LAB OUTSIDE LAB (SEE SCANNED REPORT) HEMOGLOBIN-OUTSID E LAB 14.3 14 - 18 G/DL OUTSIDE LAB (SEE SCANNED REPORT) 08/05/2023 Kristopher Cortez DO LABORATORY OUTSIDE LAB (SEE SCANNED REPORT) * XR CHEST 2 VIEWS (08/05/2023) Anatomical Region Laterality Modality Chest Other 08/05/2023 Kristopher Cortez DO RADIOLOGY ( RAD GENERAL) documented in this encounter Care Teams Hematologist Oncologist Relationship Specialty Start Date End Date Ric Garcia MD [address] [place] [address] PCP - General Family Medicine 02/05/19 documented as of this encounter
--- OUTSIDE RECORDS SUMMARY | 2023-09-23 06:34 | External Medical Summary | Summary of Care ---
Author Name Unknown Organization [facility] Address [address] [place] [address] Phone [phone] Care Team Providers Care Store Receiving Specialist Name Role Phone Ric Garcia MD Primary Care Provider + Reason for Visit * Reason Comments Follow Up Encounter Details Date Type Department Care Team (Late st Contact Info) Description 09/09/2023 12:30 PM EST Office Visit Ophthalmology, [facility] 132 [place] [place] [address] Cassius Taylor, DO [address] [place] [address] Chalazion of left lower eyelid* Allergies No known active allergiesdocumented as of this encounter (statuses as of 09/09/2023) Medications Medication Sig Dispensed Refills Start Date [...] THE MORNING 90 Tablet 1 07/17/2023 Active Hospital, Clinic, or Other Facility Administered Medication Ordered Dose Route Frequency Start Date End Date Status Triamcinolone Acetonide (Kenalog) 10 MG/ML inj 5 mgIndications:Chalazion of left lower eyelid 5 mg IJ ONCE 09/09/2023 09/09/2023 Ended documented as of this encounter (statuses as of 09/09/2023) Active Problems Problem Noted Date Diagnosed Date Cervical spinal stenosis 07/31/2022 Anosmia 07/04/2022 Overview: 2ary since covid. Other specified noninfective disorders of lymphatic vessels and lymph nodes 03/19/2019 Overview: 02/13 right UE lymph cord. NO FUTURE labs/IV draws right arm when possible. 2019 polyp colon micky 5y. Routine general medical exam ination at a health care facility 07/13/2013 Overview: 12/20 +Hpylori 07/19 MRI C-spine stenosis. 07/19 start statin given family hx. 07/10 colonoscopy 8 &2mm polyp--1 tubular adenoma micky 5Y Overweight (BMI 25.0-29.9) 06/17/2013 Depression with anxiety 05/18/2013 Overview: Sees [place] Persistent insomnia 06/06/2009 documented as of this encounter (statuses as of 09/09/2023) Resolved Problems Problem Noted Date Diagnosed Date Resolved Date H. pylori infection 12/04/2022 08/06/20 23 History of 2019 novel english virus disease (COVID-19) 02/03/2021 08/07/2023 Pain of right upper arm 03/19/201902/26 History of splenomegaly 06/03/201307/28 Family history of [place] (myocardial infarction) 3 08/06/2023 Renal stone 05/18/2013 08/06/2023 Neck mass 03/31/2013 03/05/2019 Overview: 04/09-referred surg--lipoma on path documented as of this encounter (statuses as of 09/09/2023) Immunizations Name Administration Dates Next Due COVID-19 mRNA, LNP-s, No Pre serve, 2-Dose Series (CORD:[facility] [employer] [facility]) 03/29/2021,03/07/2021 SEASONAL INFLUENZA, PF, 6 M & Above, IM , (FLULAVAL or FLUZONE) 08/07/2023,07/04/2022,09/13/2020 TDAP (age 10 and older)(Boostrix) 03/10/2019 TDAP (age 11 and older)(Adacel) 06/28/2008 documented as of this encounter Social History Tobacco Use Types Packs/Day Years Used Date Smoking Tobacco: Never Smokeless Tobacco: Never Alcohol Use Standard Drinks/Week Comments No 0 (1 standard drink = 0.6 oz pur e alcohol) PHQ-2 Answer Date Recorded PHQ Adult Total Score 8 07/04/2022 Hunger Vital Sign Answer Date Recorded Within the past 12 months, y ou worried that your food would run out before you got the money to buy more. Never true 07/04/20 22 Within the past 12 months, t he food you bought just didn't last and you didn't have money to get more. Never true 07/04/2022 Sex and Gender Information Value Date Recorded Sex Assigned at Male 07/04/2022 9:03 AM EDT Gender Identity Male 07/04/2022 9:03 AM EDT Sexual Orientation Straight 07/04/2022 9: 03 AM EDT Job Start Date Occupation Industry Not on file Not on file Not on file documented as of this encounter Progress Notes * Cassius Taylor DO - 09/09/2023 12:28 PM EST Nitin Gomez returns 6 weeks post chalazion injection LLL. Tolerated well no change LLL: incisions intact small scar softer with time C/S: Normal Cornea: Clear Assessment: 6 weeks S/P kenaolg LLL . Looks great. Plan: Reassurance Hygiene daily Repeat Kenalog offered and placed sub Q after alcohol prep Name: Nitin Gomez Date: 09/09/2023 Outpatient Procedure Note: Pre op Diagnosis: chalazion left eye lower lid Post op Diagnosis: same Procedure: Injection of Chalazion left eye lower lid Surgeon: Cassius Taylor DO Anesthesia: alcaine Complications: none EBL: none Procedure: After obtaining informed consent from the patient and parent, the left eye was anesthetised with2 gtts of Alciane. alcohol used for antiseptic and 0.5mL of Kenalog 10 placed subcuntaneously in area of chalazion. Erythromycin ointment was applied. Recommend F/U 6 weeks PRN. Blood loss none. No complications. Cassius Taylor DO documented in this encounter Nursing Notes * Xenia Chavez LPN - 09/09/2023 12:27 PM EST Nitin Gomez is a 48 year old male who presents for follow up. Patient states the lump is the same aslast visit. Last Visit: 08/12/2023 (in office), Visit date not found (telemedicine) He currently states no change in vision. Are you diabetic? No Current Ophthalmic Medications: None [facility], IOP, current eyeglass Rx, and pupil check and dilation if needed can be found in ophth exam. documented in this encounter Plan of Treatment Upcoming Encounters Date Type Department Care Team (Late st Contact Info) Description 09/25/2023 10:30 AM EST Nutrition Services Nutrition, [facility] 132 [facility] [place] [address] Ce Lara RDN [address] [facility] [place] [address] 10/08/2023 1:00 PM EST Office Visit Gastroenterology, [facility] 132 [facility] [place] [address] Yeyo Hines MD [address] [place] [address] 10/14/2023 1:00 PM EST Office Visit Ophthalmology, [facility] [address] [facility] [place] [address] Cassius Taylor DO [address] [place] [address] 12/06/2023 12:00 PM EST Office Visit Family Practice [facility] [address] [place] [address] Ric Garcia MD [address] [place] [address] Scheduled Procedures Name Priority Associated Diagnoses Date/Ti me COLONOSCOPY FLEXIBLE PROXIMA L DIAGNOSTIC Recall History of colonic polyps Health Maintenance Due Date Last Done Comments Hepatitis B (1 of 3 - 3-dose series) 1975 Hepatitis C Screening 1993 COVID-19 Vaccine (3 - 2022- season) 2023 03/29/2021, 03/07/2021 Depression Screening 07/04/2023 [...] eyelid- Primary Chalazion documented in this encounter Administered Medications Inactive Administered Medications - up to 3 most recent administrations Medication Order MAR Action Action Date Dose Rate Site Triamcinolone Acetonide (Kenalog) 10 MG/ML inj 5 mg 5 mg, Injection, ONCE, On 09/09/23 at 1315, For 1 dose Given 09/09/2023 12:37 PM EST 5 mg Eye Left documented in this encounter Care Teams Store Receiving Specialist Relationship Specialty Start Date End Date Ric Garcia MD [address] [place] [address] PCP - General Family Medicine 02/05/19 documented as of this encounter
--- OUTSIDE RECORDS SUMMARY | 2023-09-23 06:34 | External Medical Summary | Summary of Care ---
Author Name Unknown Organization [facility] Address [address] [place] [address] Phone [phone] Care Team Providers Care Compliance And Control Analyst Name Role Phone Ric Garcia MD Primary Care Provider + Reason for Visit * Reason Comments Follow Up 2-3 week return. Pt states "It didn't make a difference when using warm compresses" Encounter Details Date Type Department Care Team Description 07/15/2023 Office Visit Ophthalmology, [facility] [address] [place] [address] Cassius Taylor T, DO [address] [place] [address] Chalazion of left lower eyelid* [...] eyelid 5 mg LS ONCE 07/15/2023 07/15/2023 Ended documented as of this encounter (statuses [...] History of splenomegaly 06/03/2013 Family history of [place] (myocardial infarct ion) 05/18/2013 Depression 05/18/2013 Overview: [...] mRNA, LNP-s, No Pre serve, 2-Dose Series (mVisum) 03/29/2021,03/07/2021 Seasonal Influenza, PF, 6 mo ns [...] Lara, KONRAD [address] [place] [address] 08/07/2023 Office Visit Family Medicine Eros Moraes MD [address] [place] [address] 08/12/2023 Office Visit Ophthalmology Cassius Taylor DO 16 [place] [address] 10/08/2023 Office Visit Gastroenterology Yeyo Hines MD [address] [place] [address] 12/06/2023 Office Visit Family Medicine Ric Garcia MD [address] [place] [address] Scheduled Procedures Name Priority Associated Diagnoses Date/Ti [...] 10 MG/ML inj 5 mg 5 mg, Intralesional, ONCE, On 07/15/23 at 1145, For 1 dose Given 07/15/2023 11:42 AM EDT 5 mg Eye Left documented in this encounter Care Teams Compliance And Control Analyst Relationship Specialty Start Date End Date Ric Garcia MD [address] [place] [address] PCP - General Family Medicine 02/05/19 documented as of this encounter
--- OUTSIDE RECORDS SUMMARY | 2023-09-23 06:34 | External Medical Summary | Summary of Care ---
Author Name Unknown Organization [facility] Address [address] [place] [address] Phone [phone] Care Team Providers Care Cigarette Catcher Name Role Phone Ric Garcia MD Primary Care Provider + Reason for Visit * Reason Comments Follow Up Encounter Details Date Type Department Care Team (Late st Contact Info) Description 09/09/2023 12:30 PM EST Office Visit Ophthalmology, [facility] 132 [facility] [place] [address] Cassius Taylor, DO [address] [place] [address] Chalazion of left lower eyelid* [...] 12/04/2022 08/06/20 23 History of 2019 novel englsih virus disease (COVID-19) 02/03/2021 08/07/2023 Pain of right upper arm 03/19/201902/26 History of splenomegaly 06/03/201307/28 Family history of [place] (myocardial infarction) 3 08/06/2023 Renal stone 05/18/2013 08/06/2023 Neck mass 03/31/2013 03/05/2019 Overview: 04/09-referred surg--lipoma on path documented as of this encounter (statuses as of 09/09/2023) Immunizations Name Administration Dates Next Due COVID-19 mRNA, LNP-s, No Pre serve, 2-Dose Series ([employer]) 03/29/2021,03/07/2021 SEASONAL INFLUENZA, PF, 6 M & [...] placed sub Q after alcohol prep Name: Nitni Gomez Date: 09/09/2023 Outpatient Procedure Note: Pre [...] 09/25/2023 10:30 AM EST Nutrition Services Nutrition, [facility] 132 [facility] [place] [address] Ce Lara RDN 132 [facility] [place] [address] 10/08/2023 1:00 PM EST Office Visit Gastroenterology, [facility] 132 [facility] [place] [address] Yeyo Hines MD [address] [place] [address] 10/14/2023 1:00 PM EST Office Visit Ophthalmology, [facility] 132 [facility] [place] [address] Cassius Taylor DO [address] [place] [address] 12/06/2023 12:00 PM EST Office Visit Family Practice [facility] [address] [place] [address] Ric Garcia MD [address] [place] [address] Scheduled Procedures Name Priority Associated Diagnoses Date/Ti [...] Left documented in this encounter Care Teams Cigarette Catcher Relationship Specialty Start Date End Date Ric Garcia MD [address] [place] [address] PCP - General Family Medicine 02/05/19 documented as of this encounter
[2023-09-23] MEDS ORDERED: GLYCOPYRROLATE 0.2 MG/ML VIAL ONE (06:49)
[2023-09-23] MEDS ORDERED: ROCURONIUM BROMIDE 10 MG/ML 5 ML VIAL IV ONE (06:49)
[2023-09-23] MEDS ORDERED: ONDANSETRON INJ 2 MG/ML 2 ML VIAL ONE (06:49)
[2023-09-23] MEDS ORDERED: DEXAMETHASONE SOD INJ 4 MG/ML VIAL ONE (06:49)
[2023-09-23] MEDS ORDERED: fentaNYL citrate PF 100 MCG/2 ML VIAL ONE (06:49)
[2023-09-23] MEDS ORDERED: PROPOFOL IV EMULSION 10 MG/ML 20 ML VIAL IV ONE (06:49)
[2023-09-23] MEDS ORDERED: LIDOCAINE 2% 2 ML VIAL/AMP(20MG/ML) INFIL ONE (06:49)
[2023-09-23] MEDS ORDERED: NEOSTIGMINE METHYLSULFATE 1 MG/ML 10ML VIAL ONE (06:49)
[2023-09-23] MEDS ORDERED: MIDAZOLAM HCL 1 MG/ML 2ML VIAL ONE (06:49)
[2023-09-23] MEDS ORDERED: ATROPINE SULFATE 0.1 MG/ML 10ML SYR IV PRN (07:02)
[2023-09-23] MEDS ORDERED: ePHEDrine sulfate 50 MG/ML AMP IV PRN (07:02)
[2023-09-23] MEDS ORDERED: ONDANSETRON INJ 2 MG/ML 2 ML VIAL IV PRN ×2 (07:02→12:11)
[2023-09-23] MEDS ORDERED: ceFAZolin 330 MG/ML 1 GM VIAL ONE (07:09)
--- NOTE | 2023-09-23 07:39 | History & Physical Bridge Note ---
Date of Service September 23, 2023 History & Physical Bridge Note I have examined the patient, reviewed the History & Physical and in the interval since the performance of the History & Physical I have noted the following changes of clinical significance: no changes noted
--- NOTE | 2023-09-23 07:40 | History & Physical Report ---
Date of Service September 23, 2023 Assessment & Plan (1) Herniation of cervical intervertebral disc with radiculopathy: Plan: C5-C6 anterior cervical discectomy and fusion History of Present Illness Chief Complaint: Neck and arm pain Primary Care Provider: Ric Garcia MD This is a 48-year-old male presents with chronic persistent neck and arm pain after failing course of nonoperative care is here for surgical invention. Allergies Allergy/AdvReac Type Severity Reaction Status Date / Time No Known Allergies Allergy Verified 09/23/23 06:42 Home Medications Medication Instructions Recorded Confirmed Type doxepin 50 mg capsule 100 mg PO QPM 04/04/20 09/23/23 History gabapentin 400 mg capsule 400 mg PO QPM 04/05/20 09/23/23 History eszopiclone 2 mg tablet 2 mg PO HS 11/17/20 09/23/23 History atorvastatin 20 mg tablet 20 mg PO HS 12/13/22 09/23/23 History choline [id number] 08/05/23 History red beet root 250 mg-sour webber tab PO 08/05/23 History extract 0.5 mg chewable tablet Past Med/Surg History Medical History (Updated 09/23/23 @ 07:39 by Kristopher Cortez DO) Lower back pain IBS (irritable bowel syndrome) HLD (hyperlipidemia) Focal dystonia Tongue dystonia s/p unremarkable neurologic workup (Brain MRI/labwork), previously seen by [facility] neuro with trial of Ingrezza; pt states this is ongoing, denies change or worsening Anxiety Depressive disorder Surgical History History of esophagogastroduodenoscopy (EGD) History of colonoscopy Family History Mother No problems noted. 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
[2023-09-23] MEDS ORDERED: HYDROmorphone INJ 2 MG/ML SYR/VIAL ONE (08:03)
[2023-09-23] MEDS ORDERED: FLOSEAL HEMOSTATIC MATRIX 10ML TOP ONE ×2 (08:21→08:26)
[2023-09-23] MEDS ORDERED: SUGAMMADEX SODIUM 200 MG/2 ML VIAL IV ONE (08:46)
--- NOTE | 2023-09-23 09:01 | Operative Report ---
Post Operative Report Pre & Post Diagnosis Operation Date: 09/23/23 07:45 Pre-Op Diagnosis: Cervical spinal stenosis with radiculopathy Post-Op Diagnosis: Same I identified the patient and participated in the time-out.: Yes Procedure Operation Date: 09/23/23 07:45 Actual Procedures #1 anterior cervical discectomy with bilateral foraminotomies C5-C6. #2 anterior cervical arthrodesis C5-C6. #3 placement spiral 7 mm cage filled with I factor C5-C6. #4 placement of K2 M plate and screws across C5-C6. Surgeon Kristopher Cortez, Waste Chopper Shayla Winkler Estimated Blood Loss 10 Findings Consistent with Post-Op Diagnosis Specimens None Indications This is a 48-year-old male who presents above-mentioned diagnosis after failing since course of nonoperative care is here for surgical invention. Description of Procedure Patient met with identified informed consent obtained. Patient was then taken to the operative suite underwent patient placed in spine position on the Naif table with a head in the Alma beater head. All bony promises well-padded eyes inspected to ensure no external pressure placed upon the. This point the anterior cervical spine was prepped and draped no sterile fashion. The assistance of fluoroscopy identified the C4-5 C6 disc base and a transverse incision was placed along the right anterior aspect of the cervical spine overlying this region. Blunt dissection with assistance of bipolar electrocautery is on form down to and exposing the anterior cervical spine at C5-C6. Self-retaining retractors placed. Informed complete discectomy of C5-C6 out to the uncovertebral joints bilaterally. Spanaway distraction pins were utilized to assist in visualization. Removed all posterior annular fibers longitudinal ligament bilateral foraminotomies performed. Endplates burred to subcortical bleeding bone and 7 mm Spira cage with I factor tapped in position. Distracting apparatus was removed and a K2 M plate and screws applied with the assistance of fluoroscopy. The incision was then copiously irrigated explored to ensure no damage to surrounding structures or remaining bleeding. 10 round STEPHANIE drain inserted. The incision was then closed with 2 Vicryl in the fascia and 4 Monocryl for final skin closure. Steri-Strips sterile dressing placed. Patient waken taken to PACU in stable condition. Please note spinal cord monitoring was utilized at the procedure no changes noted. Lastly Shayla Winkler was present at the entire surgery involved the patient positioning complex portions of the surgery and final skin closure. I attest to the content of the Intraoperative Record and any orders documented therein. Any exceptions are noted below.
--- NOTE | 2023-09-23 09:15 | Fluoroscopy Report ---
FL cervical 2-3V CLINICAL HISTORY: ACFD C5-J1nstocptw spinal fusion COMPARISON STUDY: None FLUOROSCOPY TIME: 21.2 seconds FLUOROSCOPY IMAGES: 3 EXPOSURE DOSE: 3.42 mGy FINDINGS: Anterior plate and screw fusion hardware with discectomy is noted at what appears to be the C5-C6 level. The visualized components of the hardware appear to be intact. A surgical drainage cath eter and endotracheal tube are noted. No unexpected opaque foreign bodies are identified. Note that t he images were submitted following completion of the surgery. IMPRESSION: Fluoroscopic assistance as above. ACT 112: Negative or not required by law. Electronically signed by: Seun Sanchez M.D. 09/23/2023 9:14 AM
[2023-09-23] MEDS: fentaNYL citrate PF 100 MCG/2 ML VIAL IV PRN ×4 (09:44→11:49)
--- NOTE | 2023-09-23 10:26 | Anesthesiology Progress Note ---
Date of Service September 23, 2023 Anesthesia Post Procedure Vital Signs Vital Signs: Temp Pulse Pulse Resp BP Pulse Ox O2 Del Method 09/23/23 10:10 71 12 130/87 96 Nasal Cannula 09/23/23 10:00 72 12 137/85 96 Nasal Cannula 09/23/23 09:50 78 15 129/98 96 Nasal Cannula 09/23/23 09:40 66 12 124/85 99 Nasal Cannula 09/23/23 09:30 66 12 129/87 98 Oxymask 09/23/23 09:20 70 12 106/79 97 Oxymask 09/23/23 09:14 96.8 F L 96 H 12 124/85 96 Oxymask 09/23/23 06:44 97.5 F L 72 18 117/75 97 Room Air O2 Flow Rate 09/23/23 10:10 2 09/23/23 10:00 2 09/23/23 09:50 2 09/23/23 09:40 2 09/23/23 09:30 10 09/23/23 09:20 10 09/23/23 09:14 10 09/23/23 06:44 Pain Intensity Anterior Neck: Pain Intensity: 3 Transfer of Care Handoff Completed per policy Notes Mental Status: alert / awake / arousable and participated in evaluation Patient Amnestic to Procedure: Yes Nausea / Vomiting: adequately controlled Pain: adequately controlled Airway Patency, RR, SpO2: stable & adequate BP & HR: stable & adequate Hydration State: stable & adequate Anesthetic Complications: no major complications apparent and Pt Satisfied with anesthetic care
[2023-09-23] MEDS ORDERED: MAGNESIUM HYDROXIDE SUSP 30 ML UDC PO PRN (12:11)
[2023-09-23] MEDS ORDERED: diphenhydrAMINE Capsule 25 MG CAP PO PRN (12:11)
[2023-09-23] MEDS ORDERED: SOD PHOSPHATE/SOD BIPHOSPHATE ENEMA 132 ML BTL PR PRN (12:11)
[2023-09-23] MEDS ORDERED: ACETAMINOPHEN 500 MG TAB PO PRN (12:11)
[2023-09-23] MEDS ORDERED: hydrOXYzine HCl 25 MG TAB PO PRN (12:11)
[2023-09-23] MEDS ORDERED: dexAMETHasone 8 MG in SYRINGE 0 ML IV PRN (12:11)
[2023-09-23] MEDS ORDERED: traMADol HCL 50 MG TABLET PO PRN (12:11)
[2023-09-23] MEDS ORDERED: FAMOTIDINE 20 MG TAB PO PRN (12:11)
[2023-09-23] MEDS ORDERED: METOCLOPRAMIDE HCL INJ 5 MG/ML 2 ML VIAL IV PRN (12:11)
[2023-09-23] MEDS ORDERED: HYDROmorphone INJ 0.5 MG/0.5 ML SYR IV PRN (12:11)
[2023-09-23] MEDS ORDERED: ONDANSETRON 4 MG OD TAB PO PRN (12:11)
[2023-09-23] MEDS ORDERED: bisacodyL 10 MG SUPP PR PRN (12:11)
[2023-09-23] MEDS ORDERED: NALOXONE HCL 0.4 MG/1 ML VIAL/CARP IV PRN (12:11)
[2023-09-23] MEDS ORDERED: LORazepam 0.5 MG in SYRINGE 0.25 ML IV PRN (12:11)
[2023-09-23] MEDS ORDERED: LORazepam 0.5 MG TAB PO PRN (12:11)
[2023-09-23] MEDS ORDERED: DO NOT ADMINISTER FLU VACCINE PRN (12:11)
[2023-09-23] MEDS ORDERED: ACETAMINOPHEN 1,000 MG/100 ML VIAL IV PRN (12:11)
[2023-09-23] MEDS ORDERED: DO NOT ADMINISTER PNEUMOCOCCAL VACCINE PRN (12:11)
[2023-09-23] MEDS ORDERED: ALUMINUM/MAGNESIUM SUSP 30 ML UDC PO PRN (12:11)
[2023-09-23] MEDS ORDERED: RACEPINEPHRINE 2.25% NEBU SOLN 0.5 ML VIAL INH PRN (12:11)
[2023-09-23] MEDS ORDERED: PROMETHAZINE HCL 12.5 MG in SODIUM CHLORIDE 0.9% 50 ML IV PRN (12:11)
[2023-09-23] MEDS: HYDROmorphone INJ 1 MG/ML SYRINGE IV PRN ×3 (13:45→23:39)
[2023-09-23] MEDS: LACTATED RINGER'S 1,000 ML IV SCH ×2 (15:11→20:17)
[2023-09-23] MEDS: ceFAZolin 2000MG 2,000 MG/15 ML SYR IV SCH (15:55)
[2023-09-23] MEDS ORDERED: DOCUSATE SODIUM/SENNA 50/8.6MG TAB PO SCH (21:00)
[2023-09-23] MEDS ORDERED: DOXEPIN HCL 50 MG CAPSULE PO SCH (21:00)
[2023-09-23] MEDS ORDERED: GABAPENTIN 400 MG CAP PO SCH (21:00)
[2023-09-23] MEDS ORDERED: ATORVASTATIN 20 MG TAB PO SCH (21:00)
[2023-09-23] MEDS ORDERED: ESZOPICLONE 1 MG TAB PO SCH (21:00)
[2023-09-24] MEDS: ceFAZolin 2000MG 2,000 MG/15 ML SYR IV SCH (00:04)
[2023-09-24] MEDS: LACTATED RINGER'S 1,000 ML IV SCH ×2 (02:18→02:52)
[2023-09-24] MEDS: oxyCODONE HCL IR 5 MG TAB (IMMEDIATE RELEASE) PO PRN ×3 (03:49→13:57)
[2023-09-24] MEDS: HYDROmorphone INJ 1 MG/ML SYRINGE IV PRN ×2 (04:49→09:10)
[2023-09-24] MEDS ORDERED: POLYETHYLENE (MIRALAX) 17 GM PACK PO SCH (06:00)
[2023-09-24] MEDS ORDERED: dexAMETHasone 6 MG in SYRINGE 0 ML IV SCH (09:00)
--- NOTE | 2023-09-24 12:36 | Discharge Summary ---
Date of Service September 24, 2023 Admission HPI Per Admitting Provider This is a 48-year-old male presents with chronic persistent neck and arm pain after failing course of nonoperative care is here for surgical invention. Principal Diagnosis Cervical spinal stenosis with radiculopathy Discharge Data Allergies Allergy/AdvReac Type Severity Reaction Status Date / Time No Known Allergies Allergy Verified 09/23/23 06:42 Procedures Performed Operation Date: 09/23/23 07:45 Actual Procedures p C5-C6 Anterior Cervical Discectomy and Fusion, Spinal Cord Monitoring - Kristopher Cortez DO Ordered Studies 09/23/23 07:45 FL cervical 2-3V Routine Hospital Course (1) Herniation of cervical intervertebral disc with radiculopathy: Patient went anterior cervical discectomy and fusion tolerated this well was taken to orthopedic floor postoperative. Postop day 2 is swallowing well. No hoarseness. Arm symptoms improved. Extra strength testing. STEPHANIE drain decreasing appropriately. Simply discharged home. Discharge orders instructions are on the chart for further view. Total Time Total Time Spent Total Time Spent (In Minutes): 20 minutes Discharge Plan Discharge Items Patient Disposition: Home - Self-Care Reason For Visit: post op Discharge Diagnosis: cervical stenosis Activity: As commented below Non-emergency contact: Primary Care Provider Call non-emergency contact if: you have any medication questions Follow-up/Referrals: Ric Garcia MD [Primary Care Provider] - Diet: Regular Addtl Attending Provider Instructions: ACTIVITY RECOMMENDATIONS: SELF CARE INSTRUCTIONS AFTER CERVICAL FUSIONS 1. No smoking. Smoking drastically decreases the chance of a solid fusion. 2. No bending, lifting more than 5 pounds, or twisting (roll like a log when turning in bed). 3. You may shower 3 days after surgery. Thoroughly dry wound. Do not soak in the tub. 4. Cervical collar: Must be worn at all times including sleeping. You may remove the brace only to bath, eat and if you are sitting in a recliner. 5. Please walk as much as you can for exercise. Gradually increase the distance that you walk as your endurance increases. SPECIAL CARE INSTRUCTIONS: VERY IMPORTANT TO READ AND REVIEW A. Do not take any anti-inflammatory medications (i.e. Indocin, Advil, Aspirin, Naprosyn, Aleve, Motrin, etc.) as these may inhibit the chance of a solid fusion. Tylenol is okay to take. B. Your surgical incision has been closed with a cosmetic suture under the skin that will dissolve in about 6 weeks. In 14 days, you can use a pair of clean scissors and cut the suture that is left outside of the skin at the ends of your incision. C. Complications are uncommon, but please contact us if you have any signs or symptoms of: 1. wound infection (fever higher than 102.5 degrees F, redness, separation of wound, drainage, or increasing pain from the incision) 2. blood clots in legs (pain, swelling, redness and warmth in legs) 3. urinary tract infection (fever higher than 102.5 degrees, burning upon urination or increased frequency of urination) 4. nerve problems (inability to walk on your toes or heels, numbness, loss of bowel or bladder control) 5. any other symptoms that concern you. D. Please call the office at if you have any concerns or questions about your operation or recovery. MANAGING PAIN AFTER SPINAL SURGERY 1. Narcotic medication is intended for short-term use and will be provided for surgical pain. Surgical pain usually lasts for a period of 4-6 weeks. Narcotic medication includes Percocet, Vicodin, Darvocet, Tylenol #3 or Lortab. 2. Longer-term pain is more appropriately treated with non-narcotic medication such as Tylenol ES. 3. Muscle spasm is not appropriately treated with narcotics. Muscle relaxers such as Soma, Flexeril or Skelaxin can be used along with Tylenol ES. 4. Remember that we all live with some "aches and pains". This is not unusual or uncommon after an injury or as we get older. 5. We will provide appropriate medication within the normal guidelines of their prescribed use. We will also be very cautious and aware of potential abuse and extended duration of patients' medication needs. 6. Please allow 2-3 days to process refills. Prescriptions will not be mailed but must be picked up at the office. FOLLOW UP VISIT: Keep your scheduled follow-up appointment. Any questions, please call the office at . Pending Studies at Discharge: No Stand-Alone Forms: My [employer], Smoking Cessation Medications and GA Order Prescriptions: New tramadol 50 mg tablet 50 mg PO Q6H PRN (Reason: pain, moderate) Qty: 20 0RF oxycodone 5 mg tablet 5 mg PO Q6H PRN (Reason: pain) Qty: 20 0RF Continued doxepin 50 mg capsule 100 mg PO QPM gabapentin 400 mg capsule 400 mg PO QPM eszopiclone 2 mg tablet 2 mg PO HS red beet root-sour webber ext 250-0.5 mg Tablet,Chewable PO choline [id number] atorvastatin 20 mg Tablet 20 mg PO HS Discharge Orders: Discharge Order (Routine); Ordered 09/24/23 Ordered By: Kristopher Cortez Admission Data Admit Date/Time: 09/23/23 09:04 Attending Provider: Kristopher Cortez Admit Provider: Kristopher Cortez Primary Care Provider: Ric Garcia Other Interventions: Discharge Summary Assessment (RN) Last Done: 09/24/23 11:06
== END 2023-09-24 14:24 | disposition home or self-care (01) ==
LOC: PACUINP 06:28 → ASU 06:28 → 3W 16:47

== ENCOUNTER 2025-10-19 18:08 | Observation (INO) ==
[2025-10-19] MEDS: ONDANSETRON INJ 2 MG/ML 2 ML VIAL IV STA (18:28)
[2025-10-19] MEDS: MoRPHine SULFATE 4 MG/ML 1 ML CARP\\VIAL IV STA (18:28)
[2025-10-19] MEDS: SODIUM CHLORIDE 0.9% 1,000 ML IV ONE (18:28)
--- NOTE | 2025-10-19 18:39 | Emergency Department Note ---
Impression & Plan Acute appendicitis, Abdominal pain, acute, right lower quadrant, Leukocytosis ED Provider Note HISTORY OF PRESENT ILLNESS: Patient is a 50-year-old male presenting with right lower quadrant abdominal pain. Patient reports he started to have abdominal pain diffusely across his lower abdomen starting last night. He reports he thought he had food poisoning as he had nausea and a few episodes of vomiting. However, he has not had any diarrhea. He went to a walk-in clinic and was referred to the emergency department for further evaluation. Patient denies any history of abdominal surgeries. Denies any fevers or chills. He describes the pain as a cramping sensation. Pain is most notably in the right lower quadrant. Denies any dysuria or hematuria. He reports he took Tylenol around 10 AM. Patient reports last solid food intake was yesterday. Reports last oral intake of some hot tea was at 3:30 PM. ROS: as above PHYSICAL EXAM: Constitutional: Patient appears in no acute distress. HENT: Head: Normocephalic and atraumatic. Eyes: EOMI, PERRL Mouth/Throat: Mucous membranes moist. Neck: Trachea midline. Neck supple. Cardiovascular: RRR, No murmurs, rubs or gallops. Intact distal pulses. Pulmonary/Chest: No respiratory distress. Breath sounds clear and equal bilaterally. No wheezes or rales. Abdominal: Abdomen soft, no rebound. RLQ TTP with guarding Musculoskeletal: No edema, tenderness or deformity noted. Skin: Warm and dry. No rash, erythema, pallor or cyanosis Psychiatric: Appropriate mood and affect for situation. Neurological: Alert and keenly responsive. CN II-XII grossly intact, moving all extremities equally and fully. MDM: - Vitals signs stable. - History obtained via patient. History as above. - Chronic conditions affecting care: Anxiety/depression - Differential diagnoses include, but are not limited to: Aortic aneurysm; appendicitis; diverticulitis; ischemic colitis; testicular torsion; ureteral calculi - Order placed for continuous cardiac monitoring. At this time, monitor showed rate of 83 bpm with normal sinus rhythm, per my interpretation. - External medical records reviewed. Discharge summary dated 09/16/2023 was reviewed. Patient was admitted for a C5-C6 anterior cervical discectomy and fusion secondary to a herniation of the cervical intervertebral disc with radiculopathy. - Laboratory workup interpreted by myself showed leukocytosis (WBC 12.66) with neutrophil predominance; stable electrolytes; normal AST/ALT; normal lipase - Patient given 4 mg IV zofran, 1L NS, and 4 mg IV morphine for symptomatic management on arrival to ER. - CT abdomen/pelvis with IV contrast images reviewed by myself showed evidence of acute appendicitis with periappendiceal stranding, per my interpretation. - Patient given IV Zosyn. - Discussed my CT interpretation and patient's history of presenting illness with surgeon on-call, , at 19:50. He will present to bedside to evaluate the patient. - Patient taken to OR for appendectomy with general surgery. Please see their note for final disposition. ASSESSMENT AND PLAN: Diagnosis: Acute right lower quadrant abdominal pain; acute appendicitis; leukocytosis Plan: to OR Past Med/Surg History Problem List (Updated 10/19/25 @ 20:11 by Leigh Garcia MD) Leukocytosis (Acute) Abdominal pain, acute, right lower quadrant (Acute) Acute appendicitis (Acute) Herniation of cervical intervertebral disc with radiculopathy Encounter for pre-operative examination Depressive disorder Anxiety Tardive dystonia Medical History (Updated 10/19/25 @ 20:11 by Leigh Garcia MD) Lower back pain IBS (irritable bowel syndrome) HLD (hyperlipidemia) Focal dystonia Tongue dystonia s/p unremarkable neurologic workup (Brain MRI/labwork), previously seen by [facility] neuro with trial of Ingrezza; pt states this is ongoing, denies change or worsening Surgical History History of esophagogastroduodenoscopy (EGD) History of colonoscopy Family History Mother No problems noted. 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 Feels Safe at Home: Yes Assistive Devices: None Allergies Allergies Allergy/AdvReac Type Severity Reaction Status Date / Time No Known Allergies Allergy Verified 09/23/23 06:42 Home Meds Home Medications Medication Instructions Recorded Confirmed doxepin 50 mg capsule 100 mg PO QPM 04/04/20 09/23/23 gabapentin 400 mg capsule 400 mg PO QPM 04/05/20 09/23/23 eszopiclone 2 mg tablet 2 mg PO HS 11/17/20 09/23/23 atorvastatin 20 mg tablet 20 mg PO HS 12/13/22 09/23/23 choline [id number] 08/05/23 red beet 250 mg-sour webber tab PO 08/05/23 extract 0.5 mg chewable tablet Previous Rx's Medication Instructions Recorded oxycodone 5 mg tablet 5 mg PO Q6H PRN pain #20 tabs 09/23/23 tramadol 50 mg tablet 50 mg PO Q6H PRN pain, moderate 09/23/23 #20 tabs Results & Data (ED) Vital Signs Vital Signs - 24 hr 10/19/25 18:08 10/19/25 18:37 10/19/25 18:37 Temperature 36.6 C Temperature Source Temporal Artery Scan Pulse Rate 88 87 Pulse Rate [Left Finger] 87 Respiratory Rate 18 20 20 Respiratory Effort / Characteristics Non-Labored Respiratory Depth Normal Respiratory Pattern Regular Blood Pressure 137/85 Blood Pressure [Right Arm] 122/89 Blood Pressure Mean 102 Blood Pressure Mean [Right Arm] 100 Pulse Oximetry 96 94 94 Oxygen Delivery Method Room Air Sepsis Recent Fever Within 48 Hours No Sepsis New/Unexplained Change in Mental Status N/A Sepsis Action Taken by Nursing No Action Required 10/19/25 18:50 Temperature Temperature Source Pulse Rate 83 Pulse Rate [Left Finger] Respiratory Rate Respiratory Effort / Characteristics Respiratory Depth Respiratory Pattern Blood Pressure Blood Pressure [Right Arm] Blood Pressure Mean Blood Pressure Mean [Right Arm] Pulse Oximetry Oxygen Delivery Method Sepsis Recent Fever Within 48 Hours Sepsis New/Unexplained Change in Mental Status Sepsis Action Taken by Nursing Laboratory Data 10/19/25 18:30 10/19/25 18:30 Lab Results 10/19/25 Range/Units 18:30 WBC 12.66 H (4.8-10.8) K/ul RBC 6.12 H (4.70-6.10) M/uL Hgb 16.7 (14.0-18.0) g/dL Hct 48.6 (42.0-52.0) % MCV 79.4 L (80.0-100.0) fL MCH 27.3 (25.0-34.0) pg MCHC 34.4 (32.0-36.0) g/dL RDW Std Deviation 37.2 (36.4-46.3) fL RDW Coeff of Godfrey 13.2 (11.5-14.5) % Plt Count 255 (130-400) K/uL MPV 10.2 (9.4-12.4) fL Immature Gran % (Auto) 0.3 % Neut % (Auto) 81.5 % Lymph % (Auto) 11.8 % Loíza % (Auto) 5.2 % Eos % (Auto) 0.9 % Baso % (Auto) 0.3 % Neut # (Auto) 10.31 H (1.40-6.50) K/uL Lymph # (Auto) 1.49 (1.20-3.40) K/uL Loíza # (Auto) 0.66 H (0.11-0.59) K/uL Eos # (Auto) 0.12 (0.00-0.50) K/uL Baso # (Auto) 0.04 (0.00-0.20) K/uL Immature Gran # (Auto) 0.04 (0.01-0.20) K/uL Sodium 137 (136-145) mmol/L Potassium 3.7 (3.5-5.1) mmol/L Chloride 101 (98-107) mmol/L Carbon Dioxide 28 (21-32) mmol/L Anion Gap 8 (3-11) BUN 13 (6-23) mg/dl Creatinine 1.10 (0.6-1.4) mg/dl Est Cr Clr Drug Dosing 92.8 ml/min eGFR 81.78 BUN/Creatinine Ratio 11.8 (10-20) Glucose 103 H (70-99(Fasting)) mg/dl Lactate 1.5 (0.4-2.0) mmol/L Calcium 10.1 (8.6-10.3) mg/dl Total Bilirubin 0.8 (0.2-1.0) mg/dl AST 21 (13-39) U/L ALT 23 (7-52) U/L Alkaline Phosphatase 59 (34-104) U/L Total Protein 8.8 H (6.0-8.3) gm/dl Albumin 4.9 (3.4-5.0) gm/dl Globulin 3.9 (2.5-4.0) gm/dl Albumin/Globulin Ratio 1.3 (0.9-2) Lipase 16 (11-82) U/L Administered Medications Discontinued Medications Sodium Chloride (Nss) 1,000 mls @ 999 mls/hr IV .Q1H1M ONE Stop: 10/19/25 19:22 Last Infusion: 10/19/25 20:00 Dose: Infused Documented By: Admin: 10/19/25 18:28 Dose: 999 mls/hr Documented By: blanca Piperacillin Sod/Tazobactam Sod (Zosyn) 4.5 gm in 100 mls @ 200 mls/hr IV NOW ONE; Protocol Stop: 10/19/25 19:53 Last Admin: 10/19/25 19:44 Dose: 200 mls/hr Documented By: ALICIA Ioversol (Optiray 320 100ml) 93 ml IV ONCE ONE Stop: 10/19/25 19:19 Last Admin: 10/19/25 19:18 Dose: 93 ml Documented By: MAGI Morphine Sulfate (Morphine Sulfate 4 Mg/Ml 1 Ml Carp\Vial) 4 mg IV NOW STA Stop: 10/19/25 18:23 Last Admin: 10/19/25 18:28 Dose: 4 mg Documented By: blanca Ondansetron HCl (Ondansetron Inj 2 Mg/Ml 2 Ml Vial) 4 mg IV NOW STA Stop: 10/19/25 18:23 Last Admin: 10/19/25 18:28 Dose: 4 mg Documented By: blanca Discharge Plan Visit Data Chief Complaint: Abdominal Pain Stated Complaint: ABD PAIN (BOTH SIDES) ED Provider: Leigh Garcia Discharge Problem: Acute appendicitis, Abdominal pain, acute, right lower quadrant, Leukocytosis Patient Disposition: Being Evaluated by Surgeon Condition: Fair Forms Stand Alone Forms: My [facility] Prescriptions Prescriptions: No Action doxepin 50 mg capsule 100 mg PO QPM gabapentin 400 mg capsule 400 mg PO QPM eszopiclone 2 mg tablet 2 mg PO HS red beet-sour webber extract 250-0.5 mg Tablet,Chewable PO choline [id number] tramadol 50 mg tablet 50 mg PO Q6H PRN (Reason: pain, moderate) Qty: 20 0RF oxycodone 5 mg tablet 5 mg PO Q6H PRN (Reason: pain) Qty: 20 0RF atorvastatin 20 mg Tablet 20 mg PO HS Referrals Referrals: Ric Garcia MD [Primary Care Provider] -
[2025-10-19 18:49] LABS: Hematocrit (blood only) 48.6 % (42.0-52.0); Hemoglobin 16.7 g/dL (14.0-18.0); Immature Granulocytes # (auto) 0.04 K/uL (0.01-0.20); Immature Granulocytes % (auto) 0.3 %; Mean Corpuscular Hemoglobin 27.3 pg (25.0-34.0); Mean Corpuscular Volume 79.4 fL (80.0-100.0); Platelet Count 255 K/uL (130-400); RDW Standard Deviation 37.2 fL (36.4-46.3); Red Blood Count 6.12 M/uL (4.70-6.10); White Blood Count 12.66 K/ul (4.8-10.8)
[2025-10-19 19:08] LABS: Alanine Aminotransferase 23.0 U/L (7-52); Albumin Globulin Ratio 1.3 (0.9-2); Albumin Level 4.9 gm/dl (3.4-5.0); Alkaline Phosphatase 59.0 U/L (34-104); Anion Gap 8.0 (3-11); Bilirubin,Total 0.8 mg/dl (0.2-1.0); Blood Urea Nitrogen 13.0 mg/dl (6-23); Calcium 10.1 mg/dl (8.6-10.3); Carbon Dioxide 28.0 mmol/L (21-32); Chloride 101.0 mmol/L (98-107); Creatinine Clr Calc Pharmacy 92.8 ml/min; Globulin 3.9 gm/dl (2.5-4.0); Glucose 103.0 mg/dl (70-99(Fasting)); Lipase 16.0 U/L (11-82); Potassium 3.7 mmol/L (3.5-5.1); Sodium 137.0 mmol/L (136-145); Total Protein 8.8 gm/dl (6.0-8.3)
[2025-10-19] MEDS: OPTIRAY 320 100ml IV ONE (19:18)
[2025-10-19] MEDS: PIPERACILLIN/TAZOBACTAM 4.5 GM/100 ML BAG IV ONE (19:44)
[2025-10-19] MEDS ORDERED: DEXAMETHASONE SOD INJ 4 MG/ML VIAL ONE (20:31)
[2025-10-19] MEDS ORDERED: LIDOCAINE 2% 2 ML VIAL/AMP(20MG/ML) INFIL ONE (20:31)
[2025-10-19] MEDS ORDERED: ROCURONIUM BROMIDE 10 MG/ML 5 ML VIAL IV ONE (20:31)
[2025-10-19] MEDS ORDERED: PROPOFOL IV EMULSION 10 MG/ML 20 ML VIAL IV ONE ×2 (20:31→21:23)
[2025-10-19] MEDS ORDERED: SUCCINYLCHOLINE CHLORIDE 20 MG/ML 10 ML VIAL IV ONE (20:31)
[2025-10-19] MEDS ORDERED: ONDANSETRON INJ 2 MG/ML 2 ML VIAL ONE (20:31)
[2025-10-19] MEDS ORDERED: MIDAZOLAM HCL 1 MG/ML 2ML VIAL ONE (20:33)
[2025-10-19 20:41] LABS: Appearance Urine Clear (Clear); Glucose Urine UA Negative (Negative)
--- NOTE | 2025-10-19 20:47 | History & Physical Report ---
Date of Service October 19, 2025 Assessment & Plan (1) Acute appendicitis: Plan: 50-year-old gentleman with acute appendicitis. We discussed the risks and benefits of a laparoscopic appendectomy. All his questions were answered and he is agreeable to proceed. Will take him to the operating room at the earliest convenience. Consent has been obtained. History of Present Illness Primary Care Provider: Ric Garcia MD 50-year-old gentleman presents with 1 day history of abdominal pain, worsening since this morning. He vomited once and has been nauseated. No fevers or chills. No prior surgeries on his belly. Has not eaten all day. No further complaints. Allergies Allergy/AdvReac Type Severity Reaction Status Date / Time No Known Allergies Allergy Verified 09/23/23 06:42 Home Medications Medication Instructions Recorded Confirmed Type doxepin 50 mg capsule 100 mg PO QPM 04/04/20 09/23/23 History gabapentin 400 mg capsule 400 mg PO QPM 04/05/20 09/23/23 History eszopiclone 2 mg tablet 2 mg PO HS 11/17/20 09/23/23 History atorvastatin 20 mg tablet 20 mg PO HS 12/13/22 09/23/23 History choline [id number] 08/05/23 History red beet 250 mg-sour webber tab PO 08/05/23 History extract 0.5 mg chewable tablet oxycodone 5 mg tablet 5 mg PO Q6H PRN pain #20 tabs 09/23/23 Rx tramadol 50 mg tablet 50 mg PO Q6H PRN pain, moderate 09/23/23 Rx #20 tabs Past Med/Surg History Problem List Leukocytosis (Acute) Abdominal pain, acute, right lower quadrant (Acute) Acute appendicitis (Acute) Herniation of cervical intervertebral disc with radiculopathy Encounter for pre-operative examination Depressive disorder Anxiety Tardive dystonia Medical History Lower back pain IBS (irritable bowel syndrome) HLD (hyperlipidemia) Focal dystonia Tongue dystonia s/p unremarkable neurologic workup (Brain MRI/labwork), previously seen by [facility] with trial of Ingrezza; pt states this is ongoing, denies change or worsening Surgical History History of esophagogastroduodenoscopy (EGD) History of colonoscopy Family History Mother No problems noted. 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 Feels Safe at Home: Yes Assistive Devices: None Review of Systems Review of Systems: All systems reviewed & are unremarkable except as noted in HPI & below Physical Exam Constitutional: WD/WN, vitals as above Eyes: PERRL, conjunctivae normal, anicteric sclerae Neck: trachea midline, no thyromegaly Respiratory: normal respiratory effort; no respiratory distress and no labored breathing Cardiovascular: Rate/Rhythm: regular rate and regular rhythm Gastrointestinal (Abdomen): Inspection/Auscultation: abdomen normal to inspection; abdomen not distended Percussion/Palpation: + abdomen tender ( Right lower quadrant) and abdomen soft; no guarding and abdomen not rigid positive Rovsing sign Skin: no rashes, warm and dry Psychiatric: A+Ox3, euthymic affect Results & Data Results & Data Vital Signs (Past 12 Hours) Vital Signs Temp Pulse Pulse Resp BP BP Pulse Ox 10/19/25 18:50 83 10/19/25 18:37 87 20 94 10/19/25 18:37 87 20 122/89 94 10/19/25 18:08 36.6 C 88 18 137/85 96 O2 Del Method 10/19/25 18:50 10/19/25 18:37 Room Air 10/19/25 18:37 10/19/25 18:08 Laboratory Results 10/19/25 10/19/25 Range/Units 20:21 18:30 WBC 12.66 H (4.8-10.8) K/ul RBC 6.12 H (4.70-6.10) M/uL Hgb 16.7 (14.0-18.0) g/dL Hct 48.6 (42.0-52.0) % MCV 79.4 L (80.0-100.0) fL MCH 27.3 (25.0-34.0) pg MCHC 34.4 (32.0-36.0) g/dL RDW Std Deviation 37.2 (36.4-46.3) fL RDW Coeff of Godfrey 13.2 (11.5-14.5) % Plt Count 255 (130-400) K/uL MPV 10.2 (9.4-12.4) fL Immature Gran % (Auto) 0.3 % Neut % (Auto) 81.5 % Lymph % (Auto) 11.8 % [place] % (Auto) 5.2 % Eos % (Auto) 0.9 % Baso % (Auto) 0.3 % Neut # (Auto) 10.31 H (1.40-6.50) K/uL Lymph # (Auto) 1.49 (1.20-3.40) K/uL [place] # (Auto) 0.66 H (0.11-0.59) K/uL Eos # (Auto) 0.12 (0.00-0.50) K/uL Baso # (Auto) 0.04 (0.00-0.20) K/uL Immature Gran # (Auto) 0.04 (0.01-0.20) K/uL Sodium 137 (136-145) mmol/L Potassium 3.7 (3.5-5.1) mmol/L Chloride 101 (98-107) mmol/L Carbon Dioxide 28 (21-32) mmol/L Anion Gap 8 (3-11) BUN 13 (6-23) mg/dl Creatinine 1.10 (0.6-1.4) mg/dl Est Cr Clr Drug Dosing 92.8 ml/min eGFR 81.78 BUN/Creatinine Ratio 11.8 (10-20) Glucose 103 H (70-99(Fasting)) mg/dl Lactate 1.5 (0.4-2.0) mmol/L Calcium 10.1 (8.6-10.3) mg/dl Total Bilirubin 0.8 (0.2-1.0) mg/dl AST 21 (13-39) U/L ALT 23 (7-52) U/L Alkaline Phosphatase 59 (34-104) U/L Total Protein 8.8 H (6.0-8.3) gm/dl Albumin 4.9 (3.4-5.0) gm/dl Globulin 3.9 (2.5-4.0) gm/dl Albumin/Globulin Ratio 1.3 (0.9-2) Lipase 16 (11-82) U/L Urine Color Yellow Urine Appearance Clear (Clear) Urine pH 5.5 (4.5-7.5) Ur Specific Joanna > 1.045 H (1.000-1.030) Urine Protein Negative (Negative) Urine Glucose (UA) Negative (Negative) Urine Ketones Negative (Negative) Urine Blood Negative (Negative) Urine Nitrite Negative (Negative) Urine Bilirubin Negative (Negative) Urine Urobilinogen Negative (Negative) Ur Leukocyte Esterase Negative (Negative) Urine Comment
--- NOTE | 2025-10-19 20:49 | CT Scan Report ---
CT of the abdomen pelvis with IV contrast Technique: Postcontrast axial images of the abdomen and pelvis. Coronal and sagittal reformatted images made available for review No comparison Findings: Solid abdominal organs unremarkable in appearance. No free air or intestinal obstruction. Wall thickening and inflammatory changes about the appendix in the right lower quadrant without periappendiceal fluid collection. Diverticulosis of the diverticulitis. The urinary bladder is unremarkable. Bone windows demonstrate no focal abnormality Impression Acute uncomplicated appendicitis Findings discussed with Dr. Garcia at 20:48 on 10/19/25 Electronically signed by Hugo Myers 10-19-2025 8:48 PM
--- NOTE | 2025-10-19 20:51 | Anesthesiology Consultation ---
Date of Service October 19, 2025 Assessment & Plan Chart Review Chart Review: Acceptable Risk for Surgery and Patient NOT seen in Pre Admission Testing Consults Requested none ASA [id number] Proposed Anesthesia Anesthesia Type: General Risk / Benefits Reviewed With: PT / POA / Parent / Guardian, Accepts Plan and Informed Consent Obtained History Surgery Operation Date: 10/19/25 22:00 Proposed Procedures p Laparoscopic Appendectomy - Jeffy Pryor MD Height/Weight Height: 5 ft 10 in Weight: 94.6 kg Allergies Allergy/AdvReac Type Severity Reaction Status Date / Time No Known Allergies Allergy Verified 09/23/23 06:42 Medications Home Medications Medication Instructions Recorded Confirmed Last Taken doxepin 50 mg capsule 100 mg PO QPM 04/04/20 09/23/23 09/22/23 23:59 gabapentin 400 mg capsule 400 mg PO QPM 04/05/20 09/23/23 09/22/23 23:59 eszopiclone 2 mg tablet 2 mg PO HS 11/17/20 09/23/23 09/22/23 23:59 atorvastatin 20 mg tablet 20 mg PO HS 12/13/22 09/23/23 09/22/23 23:59 choline [id number] 08/05/23 Unknown red beet 250 mg-sour webber tab PO 08/05/23 Unknown extract 0.5 mg chewable tablet oxycodone 5 mg tablet 5 mg PO Q6H PRN pain #20 tabs 09/23/23 Unknown tramadol 50 mg tablet 50 mg PO Q6H PRN pain, moderate 09/23/23 Unknown #20 tabs NPO Date Last Intake of Fluids: 10/19/25 Last Intake of Fluids Comment: 3pm tea Date Last Intake of Solids: 10/19/25 Time Last Intake of Solids: 09:00 Last Intake of Solids Comment: cookies Past Medical History Medical History Lower back pain IBS (irritable bowel syndrome) HLD (hyperlipidemia) Focal dystonia Tongue dystonia s/p unremarkable neurologic workup (Brain MRI/labwork), [place] [facility] [place] of Ingrezza; pt states this is ongoing, denies change or worsening Exercise / Class Metabolic Activity II 4-5 Yardwork/Stairs/Walk up hill Past Family History Family History Mother No problems noted. Father , age 54 of a stroke Stroke Past Surgical History Surgical History History of esophagogastroduodenoscopy (EGD) History of colonoscopy Past Anesthesia History No Hx of Anesthesia Complications and No Family Hx of Anesthesia Complications History of PONV No Hx of PONV and No Hx of Motion Sickness Social History Smoking Status: Never smoker Do You Dip or Chew Tobacco: No Hx Alcohol Use: Yes alcohol intake frequency: holidays/special occasions only Hx Substance Use: No substance use type: does not use Physical Exam Vital Signs Last Vital Signs Temp 36.6 C 10/19/25 18:08 Pulse 83 10/19/25 18:50 Resp 20 10/19/25 18:37 BP 122/89 10/19/25 18:37 Pulse Ox 94 10/19/25 18:37 O2 Del Method Room Air 10/19/25 18:37 ENMT Mouth: no dentition abnormality Thyromental Distance: > or= 3.5 Finger Breadths Mallampati Class: II Neck normal visual inspection Respiratory normal respiratory effort Auscultation: lungs clear to auscultation bilaterally Cardiovascular Rate/Rhythm: regular rate and regular rhythm Psychiatric Orientation: alert Testing Laboratory Results 10/19/25 18:30 10/19/25 18:30 Urine Color Yellow 10/19/25 20:21 Urine Appearance Clear (Clear) 10/19/25 20:21 Urine pH 5.5 (4.5-7.5) 10/19/25 20:21 Ur Specific [place] > 1.045 (1.000-1.030) H 10/19/25 20:21 Urine Protein Negative (Negative) 10/19/25 20:21 Urine Glucose (UA) Negative (Negative) 10/19/25 20:21 Urine Ketones Negative (Negative) 10/19/25 20:21 Urine Nitrite Negative (Negative) 10/19/25 20:21 Ur Leukocyte Esterase Negative (Negative) 10/19/25 20:21
[2025-10-19] MEDS ORDERED: ATROPINE SULFATE 0.1 MG/ML 10ML SYR IV PRN (21:13)
[2025-10-19] MEDS ORDERED: PROMETHAZINE HCL 6.25 MG in SODIUM CHLORIDE 0.9% 50 ML IV PRN (21:13)
[2025-10-19] MEDS ORDERED: ONDANSETRON INJ 2 MG/ML 2 ML VIAL IV PRN ×2 (21:13→23:22)
[2025-10-19] MEDS ORDERED: SUGAMMADEX SODIUM 200 MG/2 ML VIAL IV ONE ×2 (21:42→21:44)
[2025-10-19] MEDS: BUPIVACAINE/EPINEPHRINE 0.5% MPF 1:200,000 30 ML VIAL ONE (21:46)
[2025-10-19] MEDS ORDERED: PHENYLEPHRINE 100MCG/ML 5ML SYR ONE (21:49)
[2025-10-19] MEDS ORDERED: ePHEDrine sulfate 50 MG/5 ML SYR ONE (21:49)
--- NOTE | 2025-10-19 21:54 | Post Operative Brief Note ---
Immediate Post Op Note Date of Surgery October 19, 2025 Pre & Post Diagnosis Operation Date: 10/19/25 22:00 Pre-Op Diagnosis: Acute appendicitis Post-Op Diagnosis: Acute appendicitis I identified the patient and participated in the time-out.: Yes Procedure Operation Date: 10/19/25 22:00 Actual Procedures p Laparoscopic Appendectomy(Not Applicable) - Jeffy Pryor MD Surgeon Jeffy Pryor MD Chemical Process Operator none Estimated Blood Loss 5 Findings Consistent with Post-Op Diagnosis
--- NOTE | 2025-10-19 21:56 | Operative Report ---
Post Operative Report Pre & Post Diagnosis Operation Date: 10/19/25 22:00 Pre-Op Diagnosis: Acute appendicitis Post-Op Diagnosis: Acute appendicitis I identified the patient and participated in the time-out.: Yes Procedure Operation Date: 10/19/25 22:00 Actual Procedures p Laparoscopic Appendectomy(Not Applicable) - Jeffy Pryor MD Surgeon Jeffy Pryor MD Director Of Program Management none Estimated Blood Loss 5 Findings Consistent with Post-Op Diagnosis Specimens Appendix Drains none Anesthesia Type General Complications none Description of Procedure the patient was taken to the operating room, and placed supine on the operating table. A timeout was performed, perioperative antibiotics were administered, SCD boots were placed. After adequate anesthesia and analgesia was obtained, the abdomen was prepped and draped in the normal sterile fashion. A 1 cm incision was made in the supraumbilical region and carried down to the level of the fascia. A trach hook was used to grasp the fascia and elevated and a varies needle was used to enter the abdominal cavity. The abdomen was insufflated to a pressure of 15 mmHg, and a 5 mm trocar was placed in this location. A 5 mm 30 degree laparoscope was placed into the abdominal cavity, and the abdomen was surveyed. The patient was placed in Trendelenburg and slightly to the left. One 5 mm trocar was placed in the right upper quadrant, and one 12 mm trocar was placed in the left lower quadrant under direct visualization. The right colon was identified and traced down to the cecum. The appendix was identified and elevated anteriorly and medially. A window was created at the base of the appendix with a [place] dissector. The Endo CHIP stapler was used to transect the appendix at its base through noninflamed tissue, and subsequently the mesoappendix. The appendix was placed in an Endo Catch bag, and removed via the left lower quadrant port site. Attention was turned to hemostasis, which was excellent. The abdomen was copiously irrigated and suctioned free, and again hemostasis was found to be excellent. All trochars removed under direct visualization. The abdomen was desufflated. The fascia in the 12 mm port site was closed with a 0 Vicryl suture. The skin was closed with a running 4-0 Monocryl subcuticular stitch. Dermabond was applied. The patient tolerated the procedure without complication, and was transferred in stable condition to the PACU. All instrument, needle, and sponge counts were correct at the end of the case. I attest to the content of the Intraoperative Record and any orders documented therein. Any exceptions are noted below.
--- NOTE | 2025-10-19 22:34 | Anesthesiology Progress Note ---
Date of Service October 19, 2025 Anesthesia Post Procedure Vital Signs Vital Signs: Temp Pulse Pulse Resp BP BP Pulse Ox 10/19/25 22:25 81 16 129/83 92 10/19/25 22:18 36.6 C 77 16 134/91 94 10/19/25 22:08 36.6 C 75 16 138/88 96 10/19/25 18:50 83 10/19/25 18:37 87 20 94 10/19/25 18:37 87 20 122/89 94 10/19/25 18:08 36.6 C 88 18 137/85 96 O2 Del Method O2 Flow Rate 10/19/25 22:25 Room Air 10/19/25 22:18 Room Air 10/19/25 22:08 Oxymask 6 10/19/25 18:50 10/19/25 18:37 Room Air 10/19/25 18:37 10/19/25 18:08 Transfer of Care Handoff Completed per policy Notes Mental Status: alert / awake / arousable Patient Amnestic to Procedure: Yes Nausea / Vomiting: adequately controlled Pain: adequately controlled Airway Patency, RR, SpO2: stable & adequate BP & HR: stable & adequate Hydration State: stable & adequate Anesthetic Complications: no major complications apparent
[2025-10-19] MEDS ORDERED: diphenhydrAMINE Capsule 25 MG CAP PO PRN (23:22)
[2025-10-19] MEDS ORDERED: MoRPHine SULFATE 2 MG/ML CARP IV PRN (23:22)
[2025-10-19] MEDS ORDERED: PROMETHAZINE 12.5 MG/50.5 ML BAG IV PRN (23:22)
[2025-10-20] MEDS: MoRPHine SULFATE 4 MG/ML 1 ML CARP\\VIAL IV PRN (03:03)
[2025-10-20] MEDS: KETOROLAC 30 MG/ML VIAL IV ONE (09:34)
[2025-10-20 11:44] VITALS: BP 115/73; PULSE 80; RESP 18; TEMP 97.7; O2SAT 92
--- NOTE | 2025-10-20 11:54 | Surgery Progress Note ---
Date of Service October 20, 2025 Assessment & Plan (1) Acute appendicitis: Plan: POD # 1 s/p laparoscopic appendectomy avss postop pain moderate to severe, not well controlled no n,v tolerating diet abdomen slightly distended urinating without difficulty Plan: Will add IV Toradol on with oral Percocet prn pain to see if pain can be better controlled encouraged ambulating hallway continue to advance diet as tolerated hopeful discharge this afternoon Discussed with Dr. Martinez who agrees with above. Admission and Anticipated Discharge Date Admission Date: October 19, 2025 Subjective having waves of severe sharp pain, not well controlled no n,v feeling bloated no passing gas or bowel movement tolerated breakfast this am no chest pain or shortness of breath no fever or chills Physical Exam Constitutional: WD/WN, vitals as above + obese, cooperative and comfortable; no acute distress and not ill appearing Respiratory: normal respiratory effort, lungs clear to auscultation Cardiovascular: RRR, no murmur, no edema Gastrointestinal (Abdomen): Inspection/Auscultation: abdomen normal to inspection and + abdominal surgical incision (c/d/i with dermabond); abdomen not distended Percussion/Palpation: + abdomen tender (RLQ), + guarding (voluntary RLQ), abdomen soft and + tympanic to percussion (mild); abdomen not rigid and abdomen not firm Skin: no rashes, warm and dry Psychiatric: A+Ox3, euthymic affect Results & Data Vital Signs (Past 12 Hours) Vital Signs Temp Pulse Resp BP Pulse Ox O2 Del Method O2 Flow Rate 10/20/25 11:43 36.5 C 80 18 115/73 92 Room Air 10/20/25 07:25 36.4 C L 75 14 109/68 93 Room Air 10/20/25 02:49 36.3 C L 78 16 125/83 93 Nasal Cannula 1 10/20/25 01:48 36.4 C L 80 14 112/74 93 Nasal Cannula 1 10/20/25 00:45 36.6 C 79 14 118/80 92 Nasal Cannula 1
--- NOTE | 2025-10-20 13:31 | Discharge Summary ---
Date of Service October 20, 2025 Admission HPI Per Admitting Provider 50-year-old gentleman presents with 1 day history of abdominal pain, worsening since this morning. He vomited once and has been nauseated. No fevers or chills. No prior surgeries on his belly. Has not eaten all day. No further complaints. Principal Diagnosis Acute appendicitis Discharge Data Allergies Allergy/AdvReac Type Severity Reaction Status Date / Time No Known Allergies Allergy Verified 09/23/23 06:42 Consultations 10/19/25 19:45 Consult General Surgery Routine Procedures Performed Operation Date: 10/19/25 22:00 Actual Procedures p Laparoscopic Appendectomy(Not Applicable) - Jeffy Pryor MD Ordered Studies 10/19/25 18:21 CT Abd and Pelvis [CT abd pelvis IV con only] Stat Hospital Course (1) Acute appendicitis: Patient taken to operating room on 10/19/25 and underwent laparoscopic appendectomy. Found to have uncomplicated appendicitis and tolerated procedure without difficulty. Was transferred to recovery then to medical/surgical floor for postop care. Diet advanced, IV fluids continued, pain management as needed. POD#1 avss however pain moderate to severe and not well controlled with oral Percocet alone. IV Toradol 30 mg one time dose was added and patient encouraged to ambulate to help with abdominal distention. Patient's pain controlled and tolerated diet in afternoon on POD # 1 and was discharged home in stable condition. Total Time Total Time Spent Total Time Spent (In Minutes): 20 Total Time Includes: Examination of the Patient, Discharge Planning and Medication Reconciliation Discharge Plan Discharge Items Patient Disposition: Home - Self-Care Reason For Visit: ABD PAIN (BOTH SIDES) Discharge Diagnosis: Acute appendicitis Condition on Discharge: Good Activity: Per Instructions section Non-emergency contact: Primary Care Provider and Surgeon Follow-up/Referrals: Ric Garcia MD [Primary Care Provider] - Miriam Pickens PA-C [Physician Director Of Sports Performance] - Diet: Regular Addtl Attending Provider Instructions: Post-Surgical ~Discharge Instructions Activity Recommendations: - lifting limitation: (20 pounds for 2 weeks), - exercise/sex/sports limit: (nonstrenuous for 2 weeks), - driving or machine use limit: (none for 1 week or until pain free and no longer taking narcotic pain medication), - Shower/bathe limit: (may shower beginning tomorrow) Diet: - Resume previous diet SPECIAL CARE INSTRUCTIONS: - May shower in 24 hours. Let water run over area and pat dry. No submerging incisions underwater for 2 weeks. - Leave surgical glue on incisions, this will peel off on its own. - Call the surgeon's office with any questions or concerns - - (ex. temperature higher than 101 degrees F, excessive bleeding or pain). MEDICATIONS: - Resume previous medications unless instructed otherwise by your surgeon. - May alternate extra strength Tylenol and Ibuprofen as needed for mild to moderate pain -650 mg Tylenol every 6 hours as needed - Ibuprofen 600 mg every 6 hours as needed (take with food) - Percocet 1 every 6 hours, as needed for moderate to severe pain - Recommend daily stool softener (Colace) while taking narcotic pain medication to prevent constipation or straining , drink plenty of water daily. FOLLOW UP VISIT: - If not already scheduled, please call the office to schedule a two week follow-up appointment. Office number Pending Studies at Discharge: Yes (appendix pathology, will be reviewed at postop visit) Stand-Alone Forms: My [facility] [employer], Smoking Cessation Medications and DC Order Prescriptions: New oxycodone-acetaminophen 5-325 mg tablet 1 tab PO Q6H PRN (Reason: pain) Qty: 10 0RF Continued doxepin 50 mg capsule 100 mg PO QPM gabapentin 400 mg capsule 400 mg PO QPM eszopiclone 2 mg tablet 2 mg PO HS red beet-sour webber extract 250-0.5 mg Tablet,Chewable PO choline [id number] tramadol 50 mg tablet 50 mg PO Q6H PRN (Reason: pain, moderate) Qty: 20 0RF atorvastatin 20 mg Tablet 20 mg PO HS Discontinued oxycodone 5 mg tablet 5 mg PO Q6H PRN (Reason: pain) Qty: 20 0RF Discharge Orders: Discharge Order (Routine); Ordered 10/20/25 Ordered By: Miriam Pickens Admission Data Admit Date/Time: 10/19/25 21:59 Attending Provider: Jeffy Pryor Admit Provider: Jeffy Pryor Primary Care Provider: Ric Garcia Other Providers: Jeffy Pryor
== END 2025-10-20 14:48 | disposition home or self-care (01) ==
LOC: ED 18:08 → OR 21:24 → 3E 21:24